=== PATIENT | male | born 1955 | race Caucasian/White ===

== ENCOUNTER → 2018-04-30 | Outpatient (CLI) | payer BC ==
--- NOTE | 2018-05-03 17:32 | MR ---
EXAMINATION TYPE: MR shoulder LT wo con DATE OF EXAM: 04/30/2018 COMPARISON: Outside radiographs 1020 HISTORY: 62-year-old male with left shoulder pain x 1 year, no trauma TECHNIQUE: Multiplanar, multisequence imaging of the left shoulder is performed without contrast. FINDINGS: Minimal intrasubstance signal within the intracapsular portion of the long head biceps tendon. The ex tracapsular portion is appropriately situated along the bicipital groove. Diffuse heterogeneity of the subscapularis tendon with tear of the inferior third fibers. Associated edematous and cystic change within the lesser tuberosity. Mild degenerative joint space narrowing with marginal spurring and capsular hypertrophy at the acromi oclavicular joint. No significant encroachment onto the underlying cuff. Evaluation of the supraspinatal tendon shows bursal sided fraying. There is some intrasubstance lazcano e within both supraspinatus and infraspinatus tendons without any high-grade partial or full-thicknes s tear. No atrophy of the rotator cuff musculature. No significant fluid or thickening of the subacromial/subdeltoid bursa. Evaluation of the glenohumeral joint shows mild diffuse cartilage thinning. There is abnormal signal within the posterior labrum suggesting posterior labral tear. No para labral cyst. Spinal glenoid vilma ove is clear. No Hill-Sachs deformity or os acromiale. Patchy red marrow hyperplasia is present. IMPRESSION: 1. Diffuse rotator cuff tendinosis. The inferior third fibers of the subscapularis tendon are torn. T he majority still remains intact. 2. No additional high-grade partial or full-thickness rotator cuff tear seen. There are areas of intr asubstance change in both supraspinatus and infraspinatus tendons and mild bursal sided fraying of th e supraspinatus tendon. 3. Tear of the posterior glenoid labrum with mild diffuse cartilage thinning of the GH joint. 4. Mild AC joint OA. 5. Tendinosis or minimal interstitial tear of the intracapsular portion of the long head biceps tendo n.
== END ==
LOC: RADMRIMAIN 14:40
PROVIDERS: ATTEND Orthopaedic Surgery
DX: M75.92 Shoulder lesion, unspecified, left shoulder (principal); S43.492A Other sprain of left shoulder joint, initial encounter; M25.812 Other specified joint disorders, left shoulder; M19.012 Primary osteoarthritis, left shoulder

== ENCOUNTER → 2018-06-17 | Outpatient (CLI) | payer BC | LOC: LABPAT 11:24 | PROVIDERS: ATTEND Orthopaedic Surgery | DX: Z01.818 Encounter for other preprocedural examination (principal); Z01.812 Encounter for preprocedural laboratory examination; M75.42 Impingement syndrome of left shoulder | CPT/HCPCS: 93005 ==

== ENCOUNTER → 2018-06-24 | Outpatient (CLI) | payer BC ==
[2018-06-24 12:07] LABS: Potassium 4.9 mmol/L (3.5-5.1)
[2018-06-24 12:15] LABS: Basophils % (A) 1 %; Eosinophils # (A) 0.2 k/uL (0-0.7); Eosinophils % (A) 4 %; HCT 45.6 % (39.0-53.0); Lymphocytes # (A) 2.3 k/uL (1.0-4.8); Lymphocytes % (A) 36 %; MCH 28.6 pg (25.0-35.0); MCHC 32.9 g/dL (31.0-37.0); MCV 86.7 fL (80.0-100.0); Mean Platelet Volume 7.2; Monocytes # (A) 0.3 k/uL (0-1.0); Monocytes % (A) 5 %; Neutrophils # (A) 3.3 k/uL (1.3-7.7); Neutrophils % (A) 53 %; Platelet Count 162 k/uL (150-450); RBC 5.26 m/uL (4.30-5.90); RDW 13.2 % (11.5-15.5); WBC 6.4 k/uL (3.8-10.6)
== END ==
LOC: LABPAT 10:53
PROVIDERS: ATTEND Orthopaedic Surgery
DX: Z01.812 Encounter for preprocedural laboratory examination (principal); M75.42 Impingement syndrome of left shoulder
CPT/HCPCS: 36415; 80051; 85025

== ENCOUNTER 2018-07-22 06:18 | Day surgery (SDC) | payer BC, OTHER ==
[2018-07-20 11:01] VITALS: BMI 27.2
--- NOTE | 2018-07-21 13:48 | HP ---
HISTORY AND PHYSICAL DATE OF SURGERY: 07/22/2018 Logan Quiroz, a 63-year-old patient seen with progressive left shoulder pain. Treatment options discussed. He elected to proceed with arthroscopy. Consent was obtained. PAST MEDICAL HISTORY: [id number] diabetes. PAST SURGICAL HISTORY: Noncontributory. DAILY MEDICATIONS: Metformin. ALLERGIES: None reported. SOCIAL HISTORY: He denies tobacco use. PHYSICAL EVALUATION OF THE LEFT SHOULDER: Flexion 150 degrees, abduction 120 degrees, external rotation is 30 degrees with weakness, tenderness along the anterior lateral acromion rotator cuff insertion site. Positive impingement sign 90, positive drop-arm sign. Distal neurovascular exam is intact. RADIOGRAPHS OF THE LEFT SHOULDER: Revealed a type 2 acromion. Cystic changes of the greater tuberosity. MRI left shoulder revealed a partial rotator cuff tear, labral tear and biceps tendinitis. IMPRESSION: 1. Left shoulder impingement with rotator cuff tear and labral tear. 2. Left shoulder biceps tendinitis. 3. Ijo-weecpmy-oolmgilfc diabetes. PLAN: Left shoulder arthroscopy with subacromial decompression, possible arthroscopic rotator cuff repair, probable arthroscopic biceps tenotomy and debridement. MMODL / IJN: [id number] /
[~2018-07-22 06:18] MED LIST: DEXAMETHASONE SOD PHOSPHATE 10 MG/ML 1 ML VIAL IV ONE; HYDROmorphone 0.5 MG/0.5 ML SYRINGE IVP PRN; LACTATED RINGERS 1,000 ML IV SCH; LIDOCAINE 1% 20 ML VIAL (10MG/ML) FOR IV START INTRADERMA PRN; ONDANSETRON 4 MG/2 ML VIAL IVP ONE; SCOPOLAMINE 1.5MG/72HR PATCH TRANSDERM ONE; ceFAZolin IN SWFI 2 GM/20 ML SYRINGE IVP ONE
[2018-07-22 06:52] LABS: Glucose,Whole Blood 170 mg/dL (75-99)
[2018-07-22] MEDS ORDERED: MIDAZOLAM 2 MG/2 ML VIAL IVP ONE (07:15)
[2018-07-22] MEDS ORDERED: fentaNYL (PF) 50 MCG/ML 2 ML AMP IVP ONE (07:16)
[2018-07-22] MEDS ORDERED: MIDAZOLAM 2 MG/2 ML VIAL ONE (07:57)
[2018-07-22] MEDS ORDERED: PROPOFOL 10 MG/ML 20 ML VIAL IV ONE (07:57)
[2018-07-22] MEDS ORDERED: ROPIVACAINE 5 MG/ML 30 ML VIAL ONE (07:57)
[2018-07-22] MEDS ORDERED: SUCCINYLCHOLINE CHLORIDE 100 MG/5 ML SYR IV ONE (07:57)
[2018-07-22] MEDS ORDERED: LIDOCAINE 1% INJ 10MG/ML (20 ML MDV) ONE (07:57)
[2018-07-22] MEDS ORDERED: fentaNYL (PF) 50 MCG/ML 2 ML AMP ONE (07:57)
[2018-07-22] MEDS ORDERED: LACTATED RINGERS 1,000 ML IV ONE (08:52)
--- NOTE | 2018-07-22 09:04 | P.ONQ ---
Anesthesiology Proc Note - PNB - Peripheral Nerve Block Performed Left Interscalene Single Time Out Performed: Yes Procedure Start Time: 07:14 Indication: Acute Post-Operative Pain, Analgesia Specifically requested for management of pain by DrPeterson: Booker Mcnair Sedation Type: Sedate with meaningful contact maintained Preparation: Sterile Prep Position: Supine Catheter: None Needle Types: Other (see comment) (Pajunk) Needle Size: 50mm (2") Needle Gauge: 21 Technique: Ultrasound Injectate: 0.5% Ropivacaine (see comment for volume) (20cc) Blood Aspirated: No Pain Paresthesia on Injection Noted: No Resistance on Injection: Normal Events: Uneventful and Well Tolerated
--- NOTE | 2018-07-22 09:49 | P.OP ---
Date of Procedure: 07/22/18 Preoperative Diagnosis: Left shoulder impingement Postoperative Diagnosis: 1. Left shoulder rotator cuff tear 2. Left shoulder impingement 3. Left shoulder acromioclavicular joint osteoarthritis 4. Left shoulder partial long head biceps tendon tear Procedure(s) Performed: 1. Left shoulder arthroscopic rotator cuff repair 2. Left shoulder arthroscopic subacromial decompression 3. Left shoulder arthroscopic Darinel procedure 4. Left shoulder arthroscopic biceps tenotomy Implants: 15.5 Arthrex swivel lock anchor Anesthesia: GETA, regional (Interscalene block) Surgeon: Booker Mcnair White Sugar Syrup Operator #1: Nick Montilla Estimated Blood Loss (ml): 5 Pathology: none sent Condition: stable Disposition: PACU Indications for Procedure: 63-year-old patient seen with progressive left shoulder pain. After treatment options were discussed, he elected to proceed with arthroscopy. Operative Findings: See description of procedure Description of Procedure: Patient underwent an interscalene block by department of anesthesia. The patient was then taken to the operative suite. The patient underwent a general anesthetic by the department of anesthesia. The patient was placed into a lateral position and secured. There was appropriate padding of the bony prominence. Left shoulder was then prepped and draped in normal sterile orthopedic fashion. We placed the extremity in 10 pounds of longitudinal traction. A posterior incision was now made for a posterior working portal site. The trocar and cannula were inserted into the glenohumeral joint. Arthroscopy was initiated. Spinal needle was now inserted anteriorly, to ascertain the anterior working portal site. An incision was now made in that area, a trocar was inserted followed by a probe. There was some mild fraying of the anterior labrum present. There were grade 1 chondral malacia changes of the glenoid. There was some partial tearing and hyperemia long head biceps tendon. I performed an arthroscopic biceps tenotomy. I debrided that superficial fraying of the anterior labrum. The residual labrum was stable. Instruments now removed from glenohumeral joint. Utilizing the posterior working portal site, the trocar and cannula were inserted into the subacromial space. Arthroscopy initiated. I made an incision 2 fingerbreadths lateral to the acromion. I introduced my trocar followed by my ArthroCare ablator. I now began ablating thick subacromial bursal tissue, which exposed the undersurface of the anterior acromion. There was diminished subacromial space. There was a very prominent anterior acromion. A motorized bur was introduced and a subacromial decompression was performed. I also excised some osteophytes off the inferior aspect of the distal clavicle. The AC joint was visualized and noted to be fairly arthritic. The motorized bur was introduced in the anterior portal site and a Darinel procedure was performed without difficulty, decompressing the AC joint nicely. I turned my attention to the rotator cuff. There was superficial tearing noted along the distal supraspinatus area. I debrided that down to stable tissue. I probed the area noted a full-thickness perforation. I debrided those margins gained down to stable tendon tissue. We had about a 11.5 cm defect. I abraded the footprint with a motorized bur. 2 everted mattress sutures were passed through good bites of rotator cuff tendon. I also passed 1 suture linkl more posteriorly. I punched a hole in the footprint for insertion of a anchor. The sutures now passed through an anchor and the anchor was then introduced into the the prepunched hole area. While held the eyelet in position Arvind MENDENHALL tension the sutures and then we introduced the anchors were prepunched hole. I told anchor position on the branch introduce anchor with good bite and purchase noted. Residual suture limbs were clipped. The repair was probed and found to be stable. I injected 1 mL Renue intra-articular. Instruments now removed from the portal sites. All portal sites were approximated with nylon suture. Sterile dressings were applied followed by a shoulder immobilizer. Nick MENDENHALL assisted in this complex case. The patient was awakened, transferred to a bed, and taken to recovery in stable condition.
[2018-07-22 09:52] VITALS: TEMP 97.3
[2018-07-22] MEDS ORDERED: ONDANSETRON 4 MG/2 ML VIAL IVP ONE (10:41)
[2018-07-22] MEDS ORDERED: METOCLOPRAMIDE 5 MG/ML 2 ML VIAL IVP ONE (11:37)
[2018-07-22 12:05] VITALS: BP 117/74; PULSE 74; RESP 19
== END 2018-07-22 12:06 | disposition home or self-care (01) ==
LOC: OR 06:18
PROVIDERS: ATTEND Orthopaedic Surgery
DX: M75.122 Complete rotator cuff tear or rupture of left shoulder, not specified as traumatic (principal); M75.42 Impingement syndrome of left shoulder; M19.012 Primary osteoarthritis, left shoulder; M75.22 Bicipital tendinitis, left shoulder; M94.212 Chondromalacia, left shoulder; S46.112A Strain of muscle, fascia and tendon of long head of biceps, left arm, initial encounter; X58.XXXA Exposure to other specified factors, initial encounter; E11.9 Type 2 diabetes mellitus without complications; G47.33 Obstructive sleep apnea (adult) (pediatric); Z85.46 Personal history of malignant neoplasm of prostate; Z90.79 Acquired absence of other genital organ(s); Z79.84 Long term (current) use of oral hypoglycemic drugs
CPT/HCPCS: 64415; 29827; 29824; 29822; C1713 ×2; C1765; J2250; J1100; J2765; J2405; J2001; J3010; J2795; J0330; J2704; J0690

== ENCOUNTER → 2018-12-04 | Outpatient (CLI) | payer OTHER ==
[2018-12-04 12:24] LABS: Blood Urea Nitrogen 12 mg/dL (9-20)
--- NOTE | 2018-12-04 14:31 | CT ---
EXAMINATION TYPE: CT pelvis w con DATE OF EXAM: 12/04/2018 COMPARISON: CT scan 05/09/2017 HISTORY: Elevated PSA, history of prostate cancer. CT DLP: 495.1 mGycm Automated exposure control for dose reduction was used. CONTRAST: Performed with IV Contrast, patient injected with 100 mL of Isovue M300. FINDINGS: I see no intestinal wall thickening. There are scattered sigmoid diverticula. There is no evidence of diverticulitis. There is prostate surgery noted. There is no evidence of a pelvic mass. There is no inguinal hernia. There is no free fluid in the pelvis. There are phleboliths in the pelvis. I see no pathologic enhancement. There is some atherosclerotic vascular calcification. Appendix appears normal . IMPRESSION: PROSTATE SURGERY. ATHEROSCLEROTIC VASCULAR DISEASE. NORMAL APPENDIX. NO EVIDENCE OF RECURRENT TUMOR. SIGMOID DIVERTICULOSIS. No significant change.
--- NOTE | 2018-12-04 15:36 | NM ---
EXAMINATION TYPE: NM bone scan whole body DATE OF EXAM: 12/04/2018 COMPARISON: CT pelvis 12/04/2017 HISTORY: Prostate cancer Delayed whole-body scanning was performed following the injection of 24.1 mCi Tc 99m MDP. Images acq uired 3 hours post injection. FINDINGS: Soft tissue uptake is normal. Uptake within the feet, knees, wrists, elbows, shoulders and sternoclav icular joints is likely degenerative. Mild uptake present along the anterior left fifth and sixth rib s may be posttraumatic. No evident increased or decreased uptake to suggest metastatic disease. Mild uptake within the spine is likely degenerative. IMPRESSION: Metastatic disease is not evident.
== END | disposition home or self-care (01) ==
LOC: RADNMMAIN 11:27
PROVIDERS: ATTEND Urology
DX: K57.30 Diverticulosis of large intestine without perforation or abscess without bleeding (principal); I70.90 Unspecified atherosclerosis; C61 Malignant neoplasm of prostate; Z98.890 Other specified postprocedural states
CPT/HCPCS: 82565; 84520; 72193; 78306; A9503; Q9967 ×2

== ENCOUNTER → 2018-12-11 | Outpatient (CLI) | payer OTHER | END | disposition home or self-care (01) | LOC: LABWHC1 10:54 | PROVIDERS: ATTEND Urology | DX: C61 Malignant neoplasm of prostate (principal); R97.21 Rising PSA following treatment for malignant neoplasm of prostate | CPT/HCPCS: 36415; 84153 ==

== ENCOUNTER → 2019-05-19 | Outpatient (CLI) | payer OTHER | END | disposition home or self-care (01) | LOC: LABWHC1 10:04 | PROVIDERS: ATTEND Radiology Radiation Oncology | DX: C61 Malignant neoplasm of prostate (principal); Z90.79 Acquired absence of other genital organ(s) | CPT/HCPCS: 36415; 84153 ==

== ENCOUNTER → 2020-09-14 | Outpatient (CLI) | payer OTHER ==
--- NOTE | 2020-09-14 16:36 | CT ---
EXAMINATION TYPE: CT abdomen pelvis wo/w con DATE OF EXAM: 09/14/2020 COMPARISON: Correlation CT pelvis 12/04/2018 HISTORY: 65-year-old male with Right abdominal pain, kidney stone (R10.9, N20.0) TECHNIQUE: Contiguous axial scanning of the abdomen and pelvis before and after administration of 100 ml Isovue 300 IV contrast. Delayed images through the kidneys and coronal/sagittal reconstructions performed. CT DLP: 2091 mGycm Automated exposure control for dose reduction was used. FINDINGS: Heart normal size without pericardial effusion. Circumferential wall thickening distal esophagus. Boogie g bases clear without pleural effusion. No focal liver lesion or biliary ductal dilatation. Portal venous system is patent. Tiny dependent calculi in the nondistended gallbladder. Adrenal glands and pancreas appear within normal limits. Punctate nonobstructive 2 mm left renal calculus. There is mild hydronephrosis and mild hydroureter on the right with a 3 mm calculus at the distal thi rd right ureter and delayed excretory phase from the right kidney. No dilated small bowel, free fluid, or free air. No mesenteric or retroperitoneal lymphadenopathy. Normal appendix. Mild stool burden. Proximal sigmoid diverticulosis. No pericolonic inflammatory hatfield ge. Bladder distended. Multiple pelvic phlebolith. Suspect surgical changes of prior TURP. No abnormal fl uid collection in the pelvis or pelvic lymphadenopathy. Bones: Multiple mild degenerative change of the hips. Osteopenia. Inferior endplate deformity of L5 i s new from 2019 but still is age-indeterminate. No surrounding inflammatory changes are seen. Facet a rthropathy lower lumbar spine. IMPRESSION: 1. EXAM POSITIVE FOR A 3 MM DISTAL THIRD RIGHT URETERAL CALCULUS WITH MILD OBSTRUCTIVE UROPATHY. 2. CIRCUMFERENTIAL WALL THICKENING OF THE DISTAL ESOPHAGUS. CORRELATE FOR SYMPTOMS OF ESOPHAGITIS. 3. PUNCTATE 2 MM NONOBSTRUCTIVE LEFT RENAL CALCULUS. TINY GALLSTONES. PROXIMAL SIGMOID DIVERTICULOSIS .
== END ==
LOC: RADCTMAIN 14:11
PROVIDERS: ATTEND Family Medicine
DX: N20.2 Calculus of kidney with calculus of ureter (principal); K57.32 Diverticulitis of large intestine without perforation or abscess without bleeding; K80.20 Calculus of gallbladder without cholecystitis without obstruction
CPT/HCPCS: 74178; Q9967

== ENCOUNTER → 2020-09-19 | Outpatient (CLI) | payer OTHER ==
--- NOTE | 2020-09-19 09:26 | US ---
EXAMINATION TYPE: US kidneys/renal and bladder DATE OF EXAM: 09/19/2020 COMPARISON: Recent CT CLINICAL HISTORY: N13.1 HYDRONEPHROSIS WITH URETERAL STRUCTURE. Right flank pain EXAM MEASUREMENTS: Right Kidney: 13.0 x 7.2 x 6.6 cm Left Kidney: 13.0 x 6.5 x 6.1 cm Right Kidney: Mild hydronephrosis. No etiology by ultrasound is evident. Left Kidney: No evidence of hydro, possible 5mm and 4mm renal calculus Bladder: Not fully distended, pt tried drinking water, in too much pain Bilateral Jets seen: No IMPRESSION: 1. Nonobstructing left renal stones. 2. Mild right hydronephrosis
== END ==
LOC: RADUSWWP 07:24
PROVIDERS: ATTEND Family Medicine
DX: N13.30 Unspecified hydronephrosis (principal); N20.0 Calculus of kidney
CPT/HCPCS: 76770

== ENCOUNTER → 2020-11-07 | Outpatient (CLI) | payer OTHER ==
--- NOTE | 2020-11-07 08:48 | US ---
EXAMINATION TYPE: US kidneys/renal and bladder DATE OF EXAM: 11/07/2020 COMPARISON: 09/19/2020 CLINICAL HISTORY: N20.1 Calculus of ureter. Hx of stones EXAM MEASUREMENTS: Right Kidney: 11.8 x 6.2 x 5.3 cm Left Kidney: 12.6 x 5.8 x 4.4 cm Right Kidney: No hydronephrosis or masses seen Left Kidney: No hydronephrosis or masses seen Bladder: wnl Bilateral Jets seen: Yes Impression: Previous left renal stones are not well demonstrated on the current exam. Previous right hydronephrosis has resolved. IMPRESSION: No acute renal abnormality. Previous right hydronephrosis has resolved.
== END | disposition home or self-care (01) ==
LOC: RADUSWWP 07:27
PROVIDERS: ATTEND Urology
DX: N20.1 Calculus of ureter (principal)
CPT/HCPCS: 76770

== ENCOUNTER → 2021-01-16 | Outpatient (CLI) | payer OTHER ==
[2021-01-16 21:35] LABS: Prostate Specific Antigen 0.2 ng/mL (0.0-4.5)
== END | disposition home or self-care (01) ==
LOC: LABWHC1 12:14
PROVIDERS: ATTEND Urology
DX: C61 Malignant neoplasm of prostate (principal); R97.20 Elevated prostate specific antigen [PSA]
CPT/HCPCS: 36415; 84153; 84403

== ENCOUNTER → 2021-04-16 | Outpatient (CLI) | payer OTHER | END | disposition home or self-care (01) | LOC: LABWHC1 13:48 | PROVIDERS: ATTEND Urology | DX: R97.20 Elevated prostate specific antigen [PSA] (principal) | CPT/HCPCS: 36415; 84153 ==

== ENCOUNTER → 2021-07-09 | Outpatient (CLI) | payer MEDICARE, OTHER ==
[2021-07-09 21:07] LABS: Prostate Specific Antigen 0.7 ng/mL (0.00-4.50)
== END | disposition home or self-care (01) ==
LOC: LABWHC1 10:57
PROVIDERS: ATTEND Urology
DX: C61 Malignant neoplasm of prostate (principal); R97.21 Rising PSA following treatment for malignant neoplasm of prostate
CPT/HCPCS: 36415; 84153; 84403

== ENCOUNTER → 2021-10-05 | Outpatient (CLI) | payer MEDICARE, OTHER ==
[2021-10-05 16:22] LABS: Prostate Specific Antigen 0.4 ng/mL (0.00-4.50); Testosterone 2.74 ng/mL (86.98-780.10)
== END | disposition home or self-care (01) ==
LOC: LABWHC1 09:02
PROVIDERS: ATTEND Urology
DX: C61 Malignant neoplasm of prostate (principal)
CPT/HCPCS: 36415; 84153; 84403

== ENCOUNTER → 2022-05-01 | Outpatient (CLI) | payer MEDICARE, OTHER ==
--- NOTE | 2022-05-01 10:32 | US ---
EXAMINATION TYPE: US abdomen complete DATE OF EXAM: 05/01/2022 COMPARISON: NONE CLINICAL HISTORY: R94.5 ABNORMAL RESULTS OF LIVER FUNCTION STUDIES. Elevated liver enzymes TECHNIQUE: Multiple sonographic images of the abdomen are obtained. FINDINGS: EXAM MEASUREMENTS: Liver Length: 15.1 cm Gallbladder Wall: 0.3 cm CBD: 0.4 cm Spleen: 13.2 cm. Normal less than 12.5 cm. Right Kidney: 11.3 x 6.1 x 5.5 cm Left Kidney: 12.8 x 6.4 x 4.5 cm Pancreas: Obscured by bowel gas Liver: appears wnl Gallbladder: no evidence of stones. No pericholecystic fluid evident. Evidence for sonographic Cook's sign: no CBD: wnl Spleen: slightly enlarged Right Kidney: no evidence of hydronephrosis Left Kidney: no evidence of hydronephrosis Upper IVC: wnl Abd Aorta: wnl IMPRESSION: 1. Minimal splenomegaly. 2. Borderline wall thickening of the gallbladder. Gallbladder is otherwise unremarkable.
== END | disposition home or self-care (01) ==
LOC: RADUSWWP 07:11
PROVIDERS: ATTEND Family Medicine
DX: N32.89 Other specified disorders of bladder (principal); R16.1 Splenomegaly, not elsewhere classified
CPT/HCPCS: 76700

== ENCOUNTER → 2022-05-24 | Outpatient (CLI) | payer MEDICARE, OTHER ==
--- NOTE | 2022-05-25 10:52 | PE ---
EXAMINATION TYPE: PET CT fusion skull to thigh DATE OF EXAM: 05/24/2022 CLINICAL INDICATION:Male, 66 years old with history of C61; TECHNIQUE: Following the intravenous administration of 6.52 mCi of Ga-68 Illuccix (PSMA), whole bod y images are performed from the skull base to the midthigh. Images are reviewed on the computer in t he coronal, axial, and sagittal planes. Reconstructed rotating images are created on independent Zkatter kstation and reviewed on the computer. A non-contrast CT is performed in conjunction with the PET s can. COMPARISON: CT 09/14/2020, PET/CT None, FINDINGS: Mediastinal SUV mean is 0.6. Hepatic parenchyma SUV mean is 1.3. SKULL BASE AND NECK: No suspicious Illuccix activity. CHEST, MEDIASTINUM, AND HILAR REGION: Scattered pulmonary nodules are seen throughout the lungs do no t demonstrate increased radiotracer uptake. Some have central lucency largest in the right upper lobe measuring 8 mm series 2 image 33, in the right middle lobe measuring 7 mm image 94 in the right low er lobe measuring 8 mm image 84 in the left upper lobe measuring 6 mm and in the left lower lobe 6 mm both on image 63. ABDOMEN AND PELVIS: No suspicious Illuccix activity. Prostate gland is surgically absent no definitiv e radiotracer uptake is identified in the prostate bed. Dense calcifications are noted that different bilaterally. OSSEOUS STRUCTURES: No suspicious Illuccix activity. OTHER CT: Cholelithiasis. Mild atherosclerosis of the arterial vasculature. Colonic diverticula prese nt. Prostate gland is surgically absent. No evidence of abnormal soft tissue in the prostatic bed sug gest recurrence. IMPRESSION: 1. Prostate gland without evidence of abnormal radiotracer uptake to suggest metastatic or recurrenc e at this time. 2. Scattered subcentimeter pulmonary nodules seen throughout the lungs which are not definitively vi sualized on prior CT abdomen pelvis examination may have been the [id number] in 2020. Correlation with priors at outside institutions would be recommended if available. Follow-up imaging with CT ches t to ensure stability is recommended in 3 months. Consider PET/CT at that time.
== END | disposition home or self-care (01) ==
LOC: RADPETMAIN 15:23
PROVIDERS: ATTEND Urology
DX: C61 Malignant neoplasm of prostate (principal); R91.8 Other nonspecific abnormal finding of lung field
CPT/HCPCS: 78815; A9596

== ENCOUNTER → 2022-07-24 | Outpatient (CLI) | payer MEDICARE, OTHER ==
--- NOTE | 2022-07-24 09:47 | BD ---
EXAMINATION TYPE: Axial Bone Density DATE OF EXAM: 07/24/2022 COMPARISON: NONE CLINICAL HISTORY: 67 years year old Male. ICD-10 CODE: M85.80 oth disorders of bone density/structur e Height: 5 FT 11 IN Weight: 186 FRAX RISK QUESTIONS: Alcohol (3 or more units per day): NO Family History (Parent hip fracture): NO Glucocorticoids (More than 3mos): NO (Ex: prednisone, prednisolone, methylprednisolone, dexamethasone, and hydrocortisone). History of Fracture in Adulthood: YES Secondary Osteoporosis: 1. Type 1 Diabetes: TYPE 2 2. Hyperthyroidism: NO 3. Menopause before 45: NA 4. Malnutrition: NO 5. Chronic liver disease: NO Rheumatoid Arthritis: NO Current Tobacco Use: NO RISK FACTORS HISTORY OF: Surgery to Spine/Hip(right/left)/Wrist (right/left): NO Family History of Osteoporosis: NO Active: NO Diet low in dairy products/other sources of calcium: NO If Lost more than 2 inches in height since high school: NO Frequent falls: NO Poor Health: FAIR Hyperparathyroidism: NO Adrenal Insufficiency: NO MEDICATIONS: Additional Medications: METFORMIN,JARDIANCE, LUPRON Additional History: PROSTATE CANCER RADIATION 3 YEARS AGO EXAM MEASUREMENTS: Bone mineral densitometry was performed using the [employer] System. Bone mineral density as measured about the Lumbar spine is: ----- L1-L4(G/cm2): 0.965 T Score Values are as follows: ----- L1: -1.8 ----- L2: -2.5 ----- L3: -2.0 ----- L4: -1.1 ----- L1-L4: -1.8 BASELINE Bone mineral density about the R hip (g/cm2): 0.595 Bone mineral density about the L hip (g/cm2): 0.589 T Score values are as follows: -----R Neck: -3.2 -----L Neck: -3.2 -----R Total: -3.0 -----L Total: -3.2 BASELINE FRAX%s: The graph provided illustrates a 24.3 % chance for a major osteoporotic fx and a 11.3 % chanc e for the hips probability for fx in 10 years time. IMPRESSION: Osteoporosis (T Score less than -2.5). There is increased fracture risk and therapy is usually indicated based on age. Re-Screen 1-2 years. NOTE: T-SCORE=SD OF THE YOUNG ADULT MEAN.
== END | disposition home or self-care (01) ==
LOC: RADBDWWP 07:54
PROVIDERS: ATTEND Family Medicine
DX: M81.0 Age-related osteoporosis without current pathological fracture (principal); M85.88 Other specified disorders of bone density and structure, other site
CPT/HCPCS: 77080

== ENCOUNTER → 2023-05-22 | Outpatient (CLI) | payer MEDICARE, OTHER ==
[~2023-05-22] MED LIST changes: +DENOSUMAB 60 MG/ML 1 ML SYRINGE SQ NR; -DEXAMETHASONE SOD PHOSPHATE 10 MG/ML 1 ML VIAL IV ONE; -HYDROmorphone 0.5 MG/0.5 ML SYRINGE IVP PRN; -LACTATED RINGERS 1,000 ML IV SCH; -LIDOCAINE 1% 20 ML VIAL (10MG/ML) FOR IV START INTRADERMA PRN; -ONDANSETRON 4 MG/2 ML VIAL IVP ONE; -SCOPOLAMINE 1.5MG/72HR PATCH TRANSDERM ONE; -ceFAZolin IN SWFI 2 GM/20 ML SYRINGE IVP ONE
[2023-05-22 09:10] VITALS: BP 135/80; PULSE 66; RESP 16; TEMP 97.8
== END ==
LOC: PROCWHC3 08:54
PROVIDERS: ATTEND Family Medicine
DX: M81.0 Age-related osteoporosis without current pathological fracture (principal)
CPT/HCPCS: 96372; J0897

== ENCOUNTER → 2023-06-05 | Outpatient (CLI) | payer MEDICARE, OTHER ==
--- NOTE | 2023-06-05 13:46 | US ---
EXAMINATION TYPE: US carotid duplex BILAT DATE OF EXAM: 06/05/2023 COMPARISON: NONE CLINICAL INDICATION: Male, 67 years old with history of G45.9 TRANSIENT CEREBRAL ISCHEMIC ATTACK, UNS PECIF; Dizziness. Numbness throughout right arm. TECHNIQUE: Carotid duplex ultrasound examination. Indirect Doppler criteria was utilized. FINDINGS: EXAM MEASUREMENTS: RIGHT: Peak Systolic Velocity (PSV) cm/sec ----- Right CCA: 83.2 ----- Right ICA: 67.1 ----- Right ECA: 122.0 ICA/CCA ratio: 0.8 RIGHT: End Diastole cm/sec ----- Right CCA: 24.4 ----- Right ICA: 22.0 ----- Right ECA: 18.4 LEFT: Peak Systolic Velocity (PSV) cm/sec ----- Left CCA: 76.0 ----- Left ICA: 70.8 ----- Left ECA: 89.2 ICA/CCA ratio: 0.9 LEFT: End Diastole cm/sec ----- Left CCA: 19.6 ----- Left ICA: 27.8 ----- Left ECA: 10.5 VERTEBRALS (direction of flow): Right Vertebral: Antegrade Left Vertebral: Antegrade Rhythm: Normal [employer] NOTES: No elevated velocities seen. Exam slightly limited due to patient snoring. IMPRESSION: No significant hemodynamic stenosis as visualized Criteria for Assigning % of Stenosis / Diameter reduction (Estimation based on the indirect measurements of the internal carotid artery velocities (ICA PSV). 1. Normal (no stenosis)=ICA PSV < 125 cm/s: ratio < 2.0: ICA EDV<40 cm/s. 2. Less than 50% stenosis=ICA PSV < 125 cm/s: ratio < 2.0: ICA EDV<40 cm/s. 3. 50 to 69% stenosis=ICA PSV of 125 to 230 cm/s: ration 2.0 ? 4.0: ICA EDV 40-100 cm/s. 4. Greater than 70% stenosis to near occlusion= ICA PSV > 230 cm/s: ratio > 4.0: ICA EDV > 100 cm/s. 5. Near occlusion= ICA PSV velocities may be low or undetectable: variable ratio and ICA EDV. 6. Total occlusion=unable to detect flow.
--- NOTE | 2023-06-05 13:57 | CT ---
EXAMINATION TYPE: CT brain wo con DATE OF EXAM: 06/05/2023 COMPARISON: HISTORY: dizzines and rt side loss of strength, poss TIA CT DLP: 1069.[address] of the brain was performed. The ventricles, basal cisterns and sulci overlying the cerebral convexities demonstrate mild enlargem ent. Hyperdense focus in the region of the right sylvian cistern measuring 6 mm is of uncertain etiol ogy. Small focus of hemorrhage or hyperdense lesion is difficult to exclude. Calcifications of the ba chidi ganglia noted. There is no evidence for intracranial hemorrhage or sulcal effacement. There is decreased attenuation about the periventricular white matter and deep white matter of both c erebral hemispheres, compatible with chronic small vessel ischemia. Differential diagnosis does inclu de demyelination. No mass effects are seen.No midline shift. Osseous calvarium is intact. If symptoms persist consider MRI. IMPRESSION: 1. Hyperdense focus in the region of the right sylvian cistern measuring 6 mm is of uncertain etiolog y. Small focus of hemorrhage or hyperdense lesion is difficult to exclude. Calcifications of the basa l ganglia noted.
== END | disposition home or self-care (01) ==
LOC: RADCTMAIN 12:02
PROVIDERS: ATTEND Family Medicine
DX: G45.9 Transient cerebral ischemic attack, unspecified (principal); G93.9 Disorder of brain, unspecified; R20.0 Anesthesia of skin
CPT/HCPCS: 70450; 93880

== ENCOUNTER → 2023-06-11 | Outpatient (CLI) | payer MEDICARE, OTHER ==
--- NOTE | 2023-06-11 08:25 | MR ---
EXAMINATION TYPE: MR brain wo/w con DATE OF EXAM: 06/11/2023 COMPARISON: CT brain June 05, 2023 HISTORY: Dizziness, right arm numbness. Hx prostate cancer 2018. TIA. TECHNIQUE: Multiplanar, multisequence images of the brain and brainstem is performed without and with IV contras t, utilizing 8 mL intravenous Gadavist . FINDINGS: Diffusion weighted images demonstrate no evidence of a recent infarct or other diffusion ab normality. There is no extra-axial fluid collection or significant white matter signal abnormality. The ventricular system and cisternal spaces are normal in size and appearance. The brain volume is age appropriate. There is blooming artifact from hyperdense focus near the right frontal temporal hawa ction is noted. Midline structures demonstrate normal morphology. The craniocervical junction appears within normal limits. Post contrast images demonstrate no abnormal enhancement. The dural venous sinuses appear pa tent. Hwtb-mo-fwrnheyc mucosal thickening involving the left maxillary sinus and anterior ethmoid sin uses bilaterally. Globes are intact bilaterally. IMPRESSION: No MRI evidence for a recent infarct. Some chronic paranasal sinus disease is present. No suspicious enhancement is seen. Blooming artifact from small focus near the frontal temporal junctio n favors parenchymal calcification versus acute hemorrhage.
== END | disposition home or self-care (01) ==
LOC: RADMRIMAIN 07:24
PROVIDERS: ATTEND Family Medicine
DX: G45.9 Transient cerebral ischemic attack, unspecified (principal); J34.89 Other specified disorders of nose and nasal sinuses; Z85.46 Personal history of malignant neoplasm of prostate
CPT/HCPCS: 70553; A9585

== ENCOUNTER → 2023-09-02 | Outpatient (CLI) | payer MEDICARE, OTHER ==
--- NOTE | 2023-09-03 14:55 | MR ---
EXAMINATION TYPE: MR cervical spine wo/w con DATE OF EXAM: 09/02/2023 7:27 PM CLINICAL INDICATION:Male, 68 years old with history of M54.12 RADICULOPATHY, CERVICAL REGION, Right a rm pain and weakness, Hx Prostate cancer COMPARISON: None. TECHNIQUE: Multi planar, multi sequence imaging was performed utilizing: T1-weighted, T2-weighted, an d turbo inversion recovery imaging of the cervical spine. IV Contrast: 8 cc Gadavist (none if empty) FINDINGS: Alignment: The cervical vertebral bodies have preserved heights. Alignment is within normal limits gi tariq patient positioning. Bones: Osteophyte and disc space narrowing most pronounced at the C5-C7 vertebral levels. Scattered h igh T2 signal lesions are seen throughout the vertebral bodies favored represent vertebral body heman giomas. Cord: The spinal cord is unremarkable with regards to their signal intensity and morphology. Discs: Multilevel disc desiccation is present. C2-C3: No significant disc pathology. The spinal canal is patent. No neural foraminal stenosis. C3-C4: No significant disc pathology. The spinal canal is patent. Bilateral facet and uncovertebral joint arthropathy are present with mild bilateral neural foraminal stenosis. C4-C5: No significant disc pathology. The spinal canal is patent. Bilateral facet and uncovertebral joint arthropathy are present with moderate left and mild right neural foraminal stenosis. C5-C6: A disc osteophyte complex is present with mild spinal canal stenosis. Bilateral facet and unc overtebral joint arthropathy are present with moderate to severe bilateral neural foraminal stenosis. C6-C7: A disc osteophyte complex is present which minimally narrows the ventral subarachnoid space. Bilateral facet and uncovertebral joint arthropathy are present with moderate bilateral neural lacy inal stenosis. C7-T1: No significant disc pathology. The spinal canal is patent. No neural foraminal stenosis. Other: None. IMPRESSION: 1. No evidence for disc herniation or significant spinal canal stenosis. 2. Multilevel disc degeneration with associated osteoarthritic changes. Neural foraminal stenosis wor se at C5-C6 with moderate to severe bilateral and C4-C5 with moderate left effusion is moderate bilat eral C6-C7.
== END | disposition home or self-care (01) ==
LOC: RADMRIMAIN 18:48
PROVIDERS: ATTEND Psychiatry & Neurology Neurology
DX: M54.12 Radiculopathy, cervical region (principal); R29.898 Other symptoms and signs involving the musculoskeletal system; Z85.46 Personal history of malignant neoplasm of prostate
CPT/HCPCS: 72156; A9585

== ENCOUNTER → 2023-09-15 | Outpatient (CLI) | payer MEDICARE, OTHER ==
--- NOTE | 2023-09-15 10:34 | XR ---
EXAMINATION TYPE: XR KUB DATE OF EXAM: 09/15/2023 9:19 AM CLINICAL INDICATION:Male, 68 years old with history of N20.0 CALCULUS OF KIDNEY; [facility] COMPARISON: 09/14/2020. TECHNIQUE: One radiographic view of the abdomen was obtained. FINDINGS: Evaluation for renal calculus is limited due to bowel gas. The bowel gas pattern is nonspec ific without dilated loops of small or large bowel. There is no evidence for organomegaly or pneumope ritoneum. The osseous structures are intact. No abnormal calcifications are present. Fecal material and gas are demonstrated throughout the colon and rectum. IMPRESSION: No renal calculi definitively visualized on radiography.
== END | disposition home or self-care (01) ==
LOC: RADXRMAIN 09:01
PROVIDERS: ATTEND Urology
DX: N20.0 Calculus of kidney (principal)
CPT/HCPCS: 74018

== ENCOUNTER → 2023-09-26 | Outpatient (CLI) | payer MEDICARE, OTHER ==
--- NOTE | 2023-09-26 13:47 | CT ---
EXAMINATION TYPE: CT abdomen pelvis wo con DATE OF EXAM: 09/26/2023 COMPARISON: 09/14/2020 HISTORY: Suspected Renal stone. CT DLP: 1146 mGycm Automated exposure control for dose reduction was used. TECHNIQUE: Helical acquisition of images was performed from the lung bases through the pelvis. FINDINGS: LUNG BASES: No significant abnormality is appreciated. LIVER/GB: Cholelithiasis. No CT evidence of cholecystitis. Liver homogeneous. PANCREAS: No significant abnormality is seen. SPLEEN: Borderline splenomegaly measuring 13 cm. ADRENALS: Subcentimeter nodule left adrenal gland most typical of benign adenoma. KIDNEYS: Right kidney: There are multiple (approximately 3) punctate 1 to 2 mm nonobstructing right renal calc antonio. Mild cortical lobulation. Left kidney: No hydronephrosis. Mild cortical lobulation. No definitive renal calculus. Ureters: Segmentally demonstrated to be of normal course and caliber with no definite hydroureter, pe riureteral edema or calcification. FREE AIR: No free air is visualized RETROPERITONEAL ADENOPATHY: None visualized REPRODUCTIVE ORGANS: No significant abnormality is seen URINARY BLADDER: Incomplete distention limits assessment. PELVIC ADENOPATHY: None visualized. OSSEOUS STRUCTURES: Diffuse osteopenia and degenerative changes spine and BOWEL: No evidence of obstruction. Appendix normal. Mild changes of colonic diverticulosis. Small hi atal hernia. OTHER: Vascular calcifications are noted including the abdominal aorta. No evidence of aneurysm. IMPRESSION: 1. There are multiple punctate 1 mm nonobstructing right renal calculi. 2. Cholelithiasis with no CT evidence of cholecystitis.
== END | disposition home or self-care (01) ==
LOC: RADCTMAIN 12:00
PROVIDERS: ATTEND Urology
DX: N20.0 Calculus of kidney (principal); K80.20 Calculus of gallbladder without cholecystitis without obstruction
CPT/HCPCS: 74176

== ENCOUNTER → 2023-11-05 | Outpatient (CLI) | payer MEDICARE, OTHER | END | disposition home or self-care (01) | LOC: LABWHC1 13:05 | PROVIDERS: ATTEND Urology | DX: C61 Malignant neoplasm of prostate (principal) | CPT/HCPCS: 36415; 84153 ==

== ENCOUNTER → 2023-12-03 | Outpatient (CLI) | payer MEDICARE, OTHER ==
[2023-12-03] MEDS: DENOSUMAB 60 MG/ML 1 ML SYRINGE SQ NR (14:52)
[2023-12-03 15:21] VITALS: BP 147/77; PULSE 65; RESP 16; TEMP 98.1
== END ==
LOC: PROCWHC3 14:23
PROVIDERS: ATTEND Family Medicine
DX: M81.0 Age-related osteoporosis without current pathological fracture (principal)
CPT/HCPCS: 96372; J0897

== ENCOUNTER 2023-12-16 08:14 | Day surgery (SDC) | payer MEDICARE, OTHER ==
[2023-12-12 14:20] VITALS: BMI 24.7
[2023-12-16 08:38] VITALS: RESP 16; TEMP 97
[2023-12-16] MEDS: IV FLUID CONTINUATION 1,000 ML IV ONE (08:39)
[2023-12-16] MEDS: LACTATED RINGERS 1,000 ML IV SCH (08:40)
[2023-12-16] MEDS: LIDOCAINE 1% (10MG/ML) FOR IV START INTRADERMA ONE (08:41)
[2023-12-16] MEDS: INSULIN ASPART (NovoLOG) 100 UNIT/ML VIAL SQ ONE (08:57)
[2023-12-16 09:03] LABS: Glucose,Whole Blood 236 mg/dL (70-110)
[2023-12-16] MEDS ORDERED: PROPOFOL 10 MG/ML 20 ML VIAL IV ONE (09:34)
--- NOTE | 2023-12-16 09:40 | P.GSHP ---
History of Present Illness H&P Date: 12/16/23 Chief Complaint: Colon cancer screening 68-year-old male here for colonoscopy. Last colonoscopy 6 to 7 years ago. No bowel complaints. Family history of colon cancer in his mother. Prior colonoscopy was normal. Past Medical History Past Medical History: Cancer, Diabetes Mellitus, Prostate Disorder, Sleep Apnea/CPAP/BIPAP Additional Past Medical History / Comment(s): Hx kidney stones. Hx prostate cancer 2018 with radiation receives shot every 6 months. Osteoporosis. No device for sleep apnea. History of Any Multi-Drug Resistant Organisms: None Reported Past Surgical History: Hernia Repair Additional Past Surgical History / Comment(s): Colonoscopy, hernia repair X2. Past Anesthesia/Blood Transfusion Reactions: No Reported Reaction, Motion Sickness Smoking Status: Never smoker - Past Family History Father Family Medical History: Cancer Additional Family Medical History / Comment(s): Prostate cancer. Mother Family Medical History: Cancer Additional Family Medical History / Comment(s): Breast cancer. Medications and Allergies Home Medications Medication Instructions Recorded Confirmed Type metFORMIN HCL [Glucophage] 850 mg PO TID 07/20/18 12/12/23 History Calcium Carbonate/Vitamin D3 1 tab PO Q72H 08/15/22 12/12/23 History [Calcium 600 mg-D3 20 mcg (800 unit)] Lupron. 1 dose IM Q180D 12/12/23 12/12/23 History Prolia (Unknown Dose) 1 dose IM Q180D 12/12/23 12/12/23 History Allergies Allergy/AdvReac Type Severity Reaction Status Date / Time No Known Allergies Allergy Verified 12/16/23 08:34 Surgical - Exam Vital Signs Temp Pulse Resp BP Pulse Ox 97.0 F L 65 16 131/80 99 12/16/23 08:36 12/16/23 08:36 12/16/23 08:36 12/16/23 08:36 12/16/23 08:36 Physical exam: General: Well-developed, well-nourished HEENT: Normocephalic, sclerae nonicteric Abdomen: Nontender, nondistended Extremities: No edema Neuro: Alert and oriented Results - Labs Abnormal Lab Results - Last 24 Hours (Table) 12/16/23 Range/Units 08:50 POC Glucose (mg/dL) 236 H (70-110) mg/dL Assessment and Plan (1) Colon cancer screening Narrative/Plan: Will proceed with colonoscopy at this time. Current Visit: Yes Status: Acute Code(s): Z12.11 - ENCOUNTER FOR SCREENING FOR MALIGNANT NEOPLASM OF COLON SNOMED Code(s): 935113161
--- NOTE | 2023-12-16 09:51 | P.PCN ---
Date of Procedure: 12/16/23 Procedure(s) Performed: PREOPERATIVE DIAGNOSIS: Colon cancer screening with family history POSTOPERATIVE DIAGNOSIS: Mild diverticulosis PROCEDURE: Colonoscopy ANESTHESIA: MAC SURGEON: Neymar Abdullahi M.D. SPECIMENS: None ENDOSCOPIC PROCEDURE: The patient was placed on the endoscopy table in the left decubitus position. The Olympus colonoscope was inserted into the anus and passed under direct visualization to the base of the cecum. The appendiceal orifice was visualized. From that point the scope was slowly withdrawn inspecting all surfaces carefully. There were no neoplastic inflammatory or polypoid lesions throughout the cecum, ascending, transverse, descending, sigmoid and rectum. There was mild left-sided diverticulosis noted. Digital rectal examination was normal. The patient was taken to the recovery room in stable condition per anesthesia guidelines. RECOMMENDATIONS: Resume diet. Repeat colonoscopy 5 years.
[2023-12-16 10:07] LABS: Glucose,Whole Blood 200 mg/dL (70-110)
[2023-12-16 10:15] VITALS: BP 128/83; PULSE 60
== END 2023-12-16 10:43 | disposition home or self-care (01) ==
LOC: ORWHC2ENDO 08:14
PROVIDERS: ATTEND Surgery
DX: Z12.11 Encounter for screening for malignant neoplasm of colon (principal); K57.30 Diverticulosis of large intestine without perforation or abscess without bleeding; E11.9 Type 2 diabetes mellitus without complications; G47.33 Obstructive sleep apnea (adult) (pediatric); M81.0 Age-related osteoporosis without current pathological fracture; Z85.46 Personal history of malignant neoplasm of prostate; Z80.0 Family history of malignant neoplasm of digestive organs; Z79.84 Long term (current) use of oral hypoglycemic drugs; Z98.890 Other specified postprocedural states; Z87.442 Personal history of urinary calculi; Z79.899 Other long term (current) drug therapy; Z91.148 Patient's other noncompliance with medication regimen for other reason
CPT/HCPCS: J2704; G0121

== ENCOUNTER → 2024-03-02 | Outpatient (CLI) | payer MEDICARE, OTHER ==
[2024-03-02 15:22] LABS: Basophils # (A) 0.03 X 10*3/uL (0.00-0.10); Basophils % (A) 0.5 %; Eosinophils # (A) 0.24 X 10*3/uL (0.04-0.35); Eosinophils % (A) 4.2 %; HCT 38.8 % (39.6-50.0); HGB 13.3 g/dL (13.0-17.0); MCH 29.4 pg (27.0-32.0); MCHC 34.3 g/dL (32.0-37.0); MCV 85.8 FL (80.0-97.0); Mean Platelet Volume 10.9 FL (9.5-12.2); Monocytes # (A) 0.52 X 10*3/uL (0.20-1.00); Monocytes % (A) 9.1 %; NRBC Per 100 WBC 0 X 10*3/uL (0.00-0.01); Neutrophils # (A) 3.27 X 10*3/uL (1.80-7.70); Neutrophils % (A) 57.2 %; Platelet Count 145 X 10*3/uL (140-440); RBC 4.52 X 10*6/uL (4.40-5.60); RDW 13.1 % (11.5-14.5); WBC 5.72 X 10*3/uL (4.50-10.00)
[2024-03-02 22:52] LABS: BUN/Creat Ratio 18.86 Ratio (12.00-20.00); Blood Urea Nitrogen 13.2 mg/dL (9.0-27.0); Calcium 9.9 mg/dL (8.7-10.3); Chloride 100 mmol/L (96-109); Glucose 272 mg/dL (70-110); Potassium 4.9 mmol/L (3.5-5.5); Prostate Specific Antigen 0.06 ng/mL (0.000-4.500); Sodium 138 mmol/L (135-145); Testosterone <10.00 ng/dL (86.98-780.10)
== END ==
LOC: LABPAT 12:03
PROVIDERS: ATTEND Urology
DX: Z01.818 Encounter for other preprocedural examination (principal); C61 Malignant neoplasm of prostate; N39.3 Stress incontinence (female) (male)
CPT/HCPCS: 36415; 80048; 84153; 84403; 85025

== ENCOUNTER → 2024-03-05 | Outpatient (CLI) | payer MEDICARE, OTHER ==
[2024-03-05 15:48] LABS: Appearance,Urine Clear (Clear); Bilirubin,Urine Negative (Negative); Blood,Urine Negative (Negative); Color,Urine Yellow (Yellow); Ketones,Urine 15 (Negative); Nitrite,Urine Negative (Negative); Specific Gravity,Urine 1.028 (1.001-1.030); Urobilinogen,Urine 0.2 E.U./DL
== END | disposition home or self-care (01) ==
LOC: LABPAT 10:10
PROVIDERS: ATTEND Urology
DX: Z01.812 Encounter for preprocedural laboratory examination (principal); N39.3 Stress incontinence (female) (male)
CPT/HCPCS: 81003; 87086

== ENCOUNTER 2024-03-10 08:40 | Day surgery (SDC) | payer MEDICARE, OTHER ==
[2024-03-04 14:34] VITALS: BMI 24.4
--- NOTE | 2024-03-09 22:20 | P.HPIHPCON ---
History of Present Illness H&P Date: 03/09/24 Chief Complaint: JAMIL This is a 68-year-old male with history of prostate cancer treated with radical prostatectomy followed by radiation therapy, has developed stress urinary incontinence. Previously underwent a urethral sling by Dr. Woodward at [facility], has been having persistent stress incontinence. Underwent an office cystoscopy that showed no evidence of mesh erosion but poor coaptation of the urethra. Option of an artificial urethral sphincter was discussed with him in details. Aware of the risk which include but not limited to bleeding, infection, persistent incontinence, device malfunction. Discussed also potential of device erosion into the urethra. All his questions were answered in regards to the procedure. He understood all the risk and agreed to proceed Consent for Procedure: I have explained the operation/procedure to the patient, including the risks, benefits, side effects, alternative therapies (including not receiving the proposed treatment or service), the likelihood of the patient achieving his/her goals, and potential recuperation problems for the procedure/sedation/analgesia, as well as any blood products, if indicated. I also explained to the patient the risks, benefits and side effects of the alternatives, as well as the risks related to not receiving the proposed procedure, care, treatment, or services. Past Medical History Past Medical History: Cancer, Diabetes Mellitus, Prostate Disorder, Sleep Apnea/CPAP/BIPAP Additional Past Medical History / Comment(s): Hx kidney stones. Hx prostate cancer 2018 with radiation receives shot every 6 months. Osteoporosis. No device for sleep apnea. History of Any Multi-Drug Resistant Organisms: None Reported Past Surgical History: Hernia Repair, Orthopedic Surgery Additional Past Surgical History / Comment(s): Colonoscopy, hernia repair X2, left rotator cuff repair Past Anesthesia/Blood Transfusion Reactions: No Reported Reaction, Motion Sickness Past Psychological History: No Psychological Hx Reported Smoking Status: Never smoker Past Alcohol Use History: None Reported Past Drug Use History: None Reported - Past Family History Father Family Medical History: Cancer Additional Family Medical History / Comment(s): Prostate cancer. Mother Family Medical History: Cancer, Diabetes Mellitus Additional Family Medical History / Comment(s): Breast cancer. Medications and Allergies Home Medications Medication Instructions Recorded Confirmed Type metFORMIN HCL [Glucophage] 850 mg PO TID 07/20/18 03/04/24 History Lupron. 1 dose IM Q180D 12/12/23 03/04/24 History Prolia (Unknown Dose) 1 dose IM Q180D 12/12/23 03/04/24 History Allergies Allergy/AdvReac Type Severity Reaction Status Date / Time No Known Allergies Allergy Verified 03/04/24 14:22 Surgical - Exam - General no distress, no pain - Eyes normal ocular movement, no pale - ENT normal nares, normal mucosa - Respiratory normal expansion, normal respiratory effort - Abdomen Abdomen: soft, non tender - Psychiatric oriented to time, oriented to person, oriented to place Assessment and Plan Assessment: OR for insertion of artificial urethral sphincter
[~2024-03-10 08:40] MED LIST changes: -DENOSUMAB 60 MG/ML 1 ML SYRINGE SQ NR; +LIDOCAINE 1% (10MG/ML) FOR IV START INTRADERMA PRN
[2024-03-10 09:18] LABS: Glucose,Whole Blood 229 mg/dL (70-110)
[2024-03-10] MEDS: LACTATED RINGERS 1,000 ML IV SCH (09:18)
[2024-03-10] MEDS: ONDANSETRON 4 MG/2 ML VIAL IVP ONE (09:19)
[2024-03-10] MEDS: DEXAMETHASONE SOD PHOSPHATE 4 MG/ML 1 ML VIAL IVP STA (09:20)
[2024-03-10] MEDS: VANCOMYCIN 750 MG in SODIUM CHLORIDE 0.9% 250 ML IVPB PRN (09:22)
[2024-03-10] MEDS: IV FLUID CONTINUATION 1,000 ML IV ONE (09:22)
[2024-03-10] MEDS ORDERED: fentaNYL (PF) 50 MCG/ML 2 ML AMP ONE (09:33)
[2024-03-10] MEDS ORDERED: PROPOFOL 10 MG/ML 20 ML VIAL IV ONE (09:33)
[2024-03-10] MEDS ORDERED: LIDOCAINE 1% INJ 10MG/ML (20 ML MDV) ONE (09:33)
[2024-03-10] MEDS ORDERED: MIDAZOLAM 2 MG/2 ML VIAL ONE (09:33)
[2024-03-10] MEDS ORDERED: ePHEDrine 50 MG/ML 1 ML VIAL ONE (09:33)
[2024-03-10] MEDS: GENTAMICIN 120 MG in SODIUM CHLORIDE 0.9% 100 ML IVPB PRN (09:38)
[2024-03-10] MEDS: GENTAMICIN 80 MG in SODIUM CHLORIDE 0.9% 200 ML IRRIGATION ONE (10:00)
[2024-03-10 11:14] VITALS: TEMP 97.5
[2024-03-10] MEDS: HYDROmorphone 0.5 MG/0.5 ML SYRINGE IVP PRN (11:15)
[2024-03-10 14:21] VITALS: BP 141/73; PULSE 64; RESP 16
--- NOTE | 2024-03-11 07:55 | P.OP ---
Date of Procedure: 03/10/24 Preoperative Diagnosis: Stress urinary incontinence Postoperative Diagnosis: Same Procedure(s) Performed: Insertion of artificial urinary urethral sphincter, cystoscopy Implants: [employer] Anesthesia: SANDROA Surgeon: Tom Mulligan Marketing Finance Manager #1: Luciano Murguia Estimated Blood Loss (ml): 25 Pathology: none sent Condition: stable Disposition: PACU Indications for Procedure: This is a 68-year-old male with history of prostate cancer treated with radical prostatectomy followed by radiation therapy, has developed stress urinary incontinence. Previously underwent a urethral sling by Dr. Woodward at [facility], has been having persistent stress incontinence. Underwent an office cystoscopy that showed no evidence of mesh erosion but poor coaptation of the urethra. Option of an artificial urethral sphincter was discussed with him in details. Aware of the risk which include but not limited to bleeding, infection, persistent incontinence, device malfunction. Discussed also potential of device erosion into the urethra. All his questions were answered in regards to the procedure. He understood all the risk and agreed to proceed Description of Procedure: The patient is brought to the operating suite. He is given a successful general endotracheal anesthesia. He is prepped and draped sterilely. A 12-[place] coud-tip catheter is introduced in the bladder with clear urine return. A midline scrotal incision is made. Retraction secured with the ring retractor. The urethra is felt. I dissect down to the urethra, of note there was significant fibrotic tissue surrounding the urethra secondary to patient's previous radiation. I tediously dissect around the urethra making sure not to injure the urethra. I do this as far proximal as possible. Once I'm completely around the urethra I created a space large enough to place a sphincter. 2 separate location was dissected in order to place tandem cuffs. I then introduced the sizer around the urethra. I measured around the coughs, and a 4 cm cuff was placed proximally and a 3.5 cm cuff was placed distally. I then make a small suprapubic incision. I dissect down to the rectus fascia. It is open. Created and reservoir. I then tunnel a space into the right groin through the external ring. Pass this down into the scrotum. I then placed the balloon reservoir end of the prevesical space and fill a 26 mL of saline. I closed the rectus fascia over with 0 PDS. I then placed the pump in a separate compartment in the scrotum superficial and anterior to the right testicle. I then placed the cuffs which had been prepared around the urethra. I then connected the reservoir to the pump using a straight connect. I then connected the cuffs to the pump using a Y connector. I then cystoscoped the urethra with a flexible cystoscope and I can see the indentation of the sphincters and there is no evidence of injury to the urethra. I then depressed the pump twice out to refill. I then deactivate the sphincters and reactivated to make sure it works does. I then deactivate the sphincter using the button on the pump. The suprapubic incision was closed with 3-0 chromic and a 4-0 Monocryl. The scrotal incisions are closed with 3-0 chromic deep and superficially. I then closed the skin with 3-0 chromic. He Irrigation was antibiotic irrigation throughout the procedure. The patient is awakened and returned recovery room good condition. The sphincter remained is activated for 6 weeks.
== END 2024-03-10 14:40 | disposition home or self-care (01) ==
LOC: OR 08:40
PROVIDERS: ATTEND Urology
DX: N39.3 Stress incontinence (female) (male) (principal); E11.9 Type 2 diabetes mellitus without complications; G47.33 Obstructive sleep apnea (adult) (pediatric); M81.0 Age-related osteoporosis without current pathological fracture; Z80.3 Family history of malignant neoplasm of breast; Z85.46 Personal history of malignant neoplasm of prostate; Z87.442 Personal history of urinary calculi; Z90.79 Acquired absence of other genital organ(s); Z79.84 Long term (current) use of oral hypoglycemic drugs; Z79.899 Other long term (current) drug therapy

== ENCOUNTER → 2024-05-13 | Outpatient (CLI) | payer MEDICARE, OTHER ==
--- NOTE | 2024-05-13 11:12 | XR ---
EXAMINATION TYPE: XR KUB DATE OF EXAM: 05/13/2024 COMPARISON: 09/15/2023 CLINICAL INDICATION: Male, 68 years old with history of N20.0 CALCULUS OF KIDNEY; TECHNIQUE: XR KUB views of the abdomen. FINDINGS: The osseous structures are intact. The bowel gas pattern is nonspecific. Air seen throughout bilater al large and small bowel loops. Bowel contents clears the renal outline. No obvious calcifications. C alcifications in the pelvis appear to be vascular. IMPRESSION: 1. Nonspecific abdomen. No definite suspicious calcifications. Tiny calculi noted by previous CT sca n within the right kidney may be obscured by extensive bowel content. [facility], , 05/13/2024 11:10 AM
== END | disposition home or self-care (01) ==
LOC: RADXRMAIN 10:45
PROVIDERS: ATTEND Urology
DX: N20.0 Calculus of kidney (principal); Z87.442 Personal history of urinary calculi
CPT/HCPCS: 74018

== ENCOUNTER 2024-05-16 07:50 | Inpatient (IN) | payer MEDICARE, OTHER ==
[2024-05-16] MEDS: SODIUM CHLORIDE 0.9% 1,000 ML IV STA ×2 (08:46→08:59)
[2024-05-16] MEDS: ONDANSETRON 4 MG/2 ML VIAL IVP STA (08:47)
[2024-05-16] MEDS: MORPHINE SULFATE 4 MG/ML SYRINGE IVP STA ×2 (08:47→11:33)
[2024-05-16 08:49] LABS: Basophils % (A) 0 %; Eosinophils # (A) 0.1 k/uL (0-0.7); Eosinophils % (A) 1 %; HGB 14.7 gm/dL (13.0-17.5); Lymphocytes # (A) 1.1 k/uL (1.0-4.8); Lymphocytes % (A) 11 %; MCH 28.5 pg (25.0-35.0); MCHC 33.4 g/dL (31.0-37.0); MCV 85.3 fL (80.0-100.0); Mean Platelet Volume 7.9; Monocytes # (A) 0.5 k/uL (0-1.0); Monocytes % (A) 5 %; Neutrophils # (A) 8.5 k/uL (1.3-7.7); Neutrophils % (A) 83 %; Platelet Count 181 k/uL (150-450); RBC 5.16 m/uL (4.30-5.90); RDW 12.6 % (11.5-15.5); WBC 10.2 k/uL (3.8-10.6)
[2024-05-16] MEDS: KETOROLAC 15 MG/ML 1 ML VIAL IVP STA (08:54)
[2024-05-16] MEDS: PANTOPRAZOLE 40 MG/10 ML VIAL IVP STA (08:54)
--- NOTE | 2024-05-16 09:15 | ED ---
General Adult HPI - General Chief complaint: Abdominal Pain Stated complaint: kidney stone Time Seen by Provider: 05/16/24 08:23 Source: patient, RN notes reviewed, old records reviewed Mode of arrival: ambulatory Limitations: no limitations - History of Present Illness Initial comments: Patient is a 68-year-old male who presents emergency department complaining of left flank pain. Diagnosed with a kidney stone by his urologist and was inst ructed to follow-up with his urologist Dr. Abdalla on Friday if symptoms did not improve. Patient states the pain is gotten worse. Has been ongoing since last Friday and he has not been having much p.o. intake or fluid hydration. Feels dehydrated. Denies any diarrhea or constipation. Endorses nausea but no emesis. Endorses left-sided flank pain. Does have a past medical history remarkable for prostate cancer, diabetes, as well as an implantable artificial urethral valve. Denies dysuria or hematuria. Denies fevers. No other acute complaints. Presents for further evaluation at this time. He has been on ketorolac as well as Zofran at home for his symptoms. No longer receiving chemo or radiation for prostate cancer. - Related Data Home Medications Medication Instructions Recorded Confirmed metFORMIN HCL [Glucophage] 850 mg PO TID 07/20/18 05/16/24 Denosumab [Prolia] 1 dose SQ Q180D 05/16/24 05/16/24 Lupron 1 dose IM Q18D 05/16/24 05/16/24 Ondansetron [Zofran] 4 mg PO Q8HR PRN 05/16/24 05/16/24 Tirzepatide [Mounjaro] 2.5 mg SQ WE 05/16/24 05/16/24 Previous Rx's Medication Instructions Recorded Ketorolac [Toradol] 10 mg PO Q6HR PRN #15 tab 03/10/24 Allergies Allergy/AdvReac Type Severity Reaction Status Date / Time No Known Allergies Allergy Verified 05/16/24 10:38 Review of Systems ROS Statement: Those systems with pertinent positive or pertinent negative responses have been documented in the HPI. Review of Systems: CONST: Denies fever EYES: Denies blurry vision ENT: Denies nasal congestion C/V: Denies Chest pain RESP: Denies shortness of breath GI: Endorses left flank pain : Denies dysuria SKIN: Denies rash. MSK: Denies joint pain. NEURO: Denies headache ROS Other: All systems not noted in ROS Statement are negative. Past Medical History Past Medical History: Cancer, Diabetes Mellitus, Prostate Disorder, Sleep Apnea/CPAP/BIPAP Additional Past Medical History / Comment(s): Hx kidney stones. Hx prostate cancer 2018 with radiation receives shot every 6 months. Osteoporosis. No device for sleep apnea. History of Any Multi-Drug Resistant Organisms: None Reported Past Surgical History: Hernia Repair Additional Past Surgical History / Comment(s): Colonoscopy, hernia repair X2. Past Anesthesia/Blood Transfusion Reactions: No Reported Reaction, Motion Sickness Past Psychological History: No Psychological Hx Reported Smoking Status: Never smoker Past Alcohol Use History: None Reported Past Drug Use History: None Reported - Past Family History Father Family Medical History: Cancer Additional Family Medical History / Comment(s): Prostate cancer. Mother Family Medical History: Cancer, Diabetes Mellitus Additional Family Medical History / Comment(s): Breast cancer. General Exam - General Exam Comments Initial Comments: General: Appears in no acute distress. HEAD: Normal with no signs of head trauma. EYES: PERRLA, EOMI, conjunctiva normal, no discharge. ENT: Hearing grossly intact, normal oropharynx. RESPIRATORY: Clear breath sounds bilaterally. No wheezes, rales, or rhonchi. C/V: Regular rate and rhythm. S1 and S2 auscultated, no edema, peripheral pulses 2+ and intact throughout ABD: Abdomen is soft, nondistended. Tender to palpation in the left flank region. Some mild radiation to the suprapubic region. No guarding or rebound tenderness. No peritoneal signs. EXT: Normal range of motion, no obvious deformity SKIN: No rashes or lesions observed on exposed skin. NEURO: Alert and oriented x 4. Limitations: no limitations Course Vital Signs 05/16/24 08:03 Temperature 98.1 F Pulse Rate 80 Respiratory 20 Rate Blood Pressure 157/87 O2 Sat by Pulse 99 Oximetry Medical Decision Making - Medical Decision Making Was pt. sent in by a medical professional or institution (, PA, DINING CHAIR SEAT CUSHION TRIMMER, urgent care, hospital, or [facility]...) When possible be specific @ -No Did you speak to anyone other than the patient for history (EMS, parent, family, police, friend...)? What history was obtained from this source @ -No Did you review nursing and triage notes (agree or disagree)? Why? @ -I reviewed and agree with nursing and triage notes Were old charts reviewed (outside hosp., previous admission, EMS record, old EKG, old radiological studies, urgent care reports/EKG's, [facility] records)? Report findings @ -Reviewed [facility] x-ray from May 13, 2024 which was unremarkable. Differential Diagnosis (chest pain, altered mental status, abdominal pain women, abdominal pain men, vaginal bleeding, weakness, fever, dyspnea, syncope, headache, dizziness, GI bleed, back pain, seizure, CVA, palpatations, mental health, musculoskeletal)? @ -Differential Abdominal Pain Men: Appendicitis, cholecystitis, diverticulosis, ischemic bowel, pancreatitis, hepatitis, UTI, gastroenteritis, AAA, incarcerated hernia, bowel obstruction, constipation, inflammatory bowel, hepatitis, peptic ulcer disease, splenic infarction, perforated viscus, testicular torsion, this is not meant to be an all-inclusive list EKG interpreted by me (3pts min.). @ -None done X-rays interpreted by me (1pt min.). @ -None done CT interpreted by me (1pt min.). @ -CT abdomen pelvis reveals mild to moderate left-sided hydronephrosis secondary to distal left ureteral calculi largest is 5 mm. Patient also has a right middle lobe nodule. U/S interpreted by me (1pt. min.). @ -None done What testing was considered but not performed or refused? (CT, X-rays, U/S, labs)? Why? @ -None What meds were considered but not given or refused? Why? @ -None Did you discuss the management of the patient with other professionals (professionals i.e. , PA, DINING CHAIR SE[employer] C[employer]ION TRIMMER, lab, RT, psych nurse, social services, chemical lab supervisor, te acher, command center officer, case resource manager)? Give summary @ -I spoke with Dr. Murguia of urology who was in agreement this plan. I spoke with the admitting provider, Dr. Hernandez who accepted the admission. Was smoking cessation discussed for >3mins.? @ -No Was critical care preformed (if so, how long)? @ -No Were there social determinants of health that impacted care today? How? (Homelessness, low income, unemployed, alcoholism, drug addiction, transportation, low edu. Level, literacy, decrease access to med. care, alf, rehab)? @ -No Was there de-escalation of care discussed even if they declined (Discuss DNR or withdrawal of care, Hospice)? DNR status @ -No What co-morbidities impacted this encounter? (DM, HTN, Smoking, COPD, CAD, Cancer, CVA, ARF, Chemo, Hep., AIDS, mental health diagnosis, sleep apnea, morbid obesity)? @ -History of kidney stones, prostate cancer Was patient admitted / discharged? Hospital course, mention meds given and route, prescriptions, significant lab abnormalities, going to OR and other pertinent info. @ -Based on the patient's presentation and physical exam, presents with left flank pain. History of kidney stones and prostate cancer as well as an artificial urethral valve. We will obtain abdominal labs, urine studies, as well as a CT abdomen pelvis to evaluate for stones. He was in agreement this plan. He will be symptomatically treated with IV fluids, Toradol, Zofran, Protonix, morphine. Patient was in agreement this plan. Patient's laboratory studies show signs consistent with dehydration as the patient has a lactic acidosis of 2.7, as well as 3+ ketones in his urine. Anion gap is not sufficiently elevated to call the patient DKA at this time. Will continue to monitor. Imaging shows 2 left-sided ureteral calculi. I updated the patient. I also updated him regarding his pulmonary nodule on the right and he expressed understanding that he needs follow-up imaging. I recommend admission for his dehydration which she accepted. I spoke with Dr. Murguia of urology who was in agreement this plan. I spoke with the admitting provider, Dr. Hernandez who accepted the admission. Undiagnosed new problem with uncertain prognosis? @ -No Drug Therapy requiring intensive monitoring for toxicity (Heparin, Nitro, Insulin, Cardizem)? @ -No Were any procedures done? @ -No Diagnosis/symptom? @ -Ureterolithiasis, dehydration Acute, or Chronic, or Acute on Chronic? @ -Acute Uncomplicated (without systemic symptoms) or Complicated (systemic symptoms)? @ -Complicated Side effects of treatment? @ -None Exacerbation, Progression, or Severe Exacerbation] @ -No Poses a threat to life or bodily function? @ -Potentially, yes Diagnosis/symptom? @ -Right lung nodule Acute, or Chronic, or Acute on Chronic? @ -Unknown Uncomplicated (without systemic symptoms) or Complicated (systemic symptoms)? @ -Unknown Side effects of treatment? @ -None Exacerbation, Progression, or Severe Exacerbation] @ -No Poses a threat to life or bodily function? @ -Potentially, however unlikely in the acute setting - Lab Data Result diagrams: 05/16/24 08:35 05/16/24 08:35 Lab Results 05/16/24 05/16/24 05/16/24 Range/Units 08:35 08:35 08:35 WBC 10.2 (3.8-10.6) k/uL RBC 5.16 (4.30-5.90) m/uL Hgb 14.7 (13.0-17.5) gm/dL Hct 44.0 (39.0-53.0) % MCV 85.3 (80.0-100.0) fL MCH 28.5 (25.0-35.0) pg MCHC 33.4 (31.0-37.0) g/dL RDW 12.6 (11.5-15.5) % Plt Count 181 (150-450) k/uL MPV 7.9 Neutrophils % 83 % Lymphocytes % 11 % Monocytes % 5 % Eosinophils % 1 % Basophils % 0 % Neutrophils # 8.5 H (1.3-7.7) k/uL Lymphocytes # 1.1 (1.0-4.8) k/uL Monocytes # 0.5 (0-1.0) k/uL Eosinophils # 0.1 (0-0.7) k/uL Basophils # 0.0 (0-0.2) k/uL Sodium 134 L (137-145) mmol/L Potassium 4.5 (3.5-5.1) mmol/L Chloride 98 (98-107) mmol/L Carbon Dioxide 19 L (22-30) mmol/L Anion Gap 17 mmol/L BUN 22 H (9-20) mg/dL Creatinine 1.06 (0.66-1.25) mg/dL Est GFR (CKD-EPI)AfAm 84 (>60 ml/min/1.73 sqM) Est GFR (CKD-EPI)NonAf 73 (>60 ml/min/1.73 sqM) Glucose 293 H (74-99) mg/dL Lactic Ac Sepsis Rflx Plasma Lactic Acid Ean 2.7 H* (0.7-2.0) mmol/L Calcium 10.6 H (8.4-10.2) mg/dL Total Bilirubin 1.4 H (0.2-1.3) mg/dL AST 44 (17-59) U/L ALT 57 H (4-49) U/L Alkaline Phosphatase 47 (38-126) U/L Total Protein 7.9 (6.3-8.2) g/dL Albumin 4.8 (3.5-5.0) g/dL Amylase 48 (30-110) U/L Lipase 44 (23-300) U/L Urine Color Urine Appearance (Clear) Urine pH (5.0-8.0) Ur Specific [place] (1.001-1.035) Urine Protein (Negative) Urine Glucose (UA) (Negative) Urine Ketones (Negative) Urine Blood (Negative) Urine Nitrite (Negative) Urine Bilirubin (Negative) Urine Urobilinogen (<2.0) mg/dL Ur Leukocyte Esterase (Negative) 05/16/24 05/16/24 Range/Units 09:23 09:28 WBC (3.8-10.6) k/uL RBC (4.30-5.90) m/uL Hgb (13.0-17.5) gm/dL Hct (39.0-53.0) % MCV (80.0-100.0) fL MCH (25.0-35.0) pg MCHC (31.0-37.0) g/dL RDW (11.5-15.5) % Plt Count (150-450) k/uL MPV Neutrophils % % Lymphocytes % % Monocytes % % Eosinophils % % Basophils % % Neutrophils # (1.3-7.7) k/uL Lymphocytes # (1.0-4.8) k/uL Monocytes # (0-1.0) k/uL Eosinophils # (0-0.7) k/uL Basophils # (0-0.2) k/uL Sodium (137-145) mmol/L Potassium (3.5-5.1) mmol/L Chloride (98-107) mmol/L Carbon Dioxide (22-30) mmol/L Anion Gap mmol/L BUN (9-20) mg/dL Creatinine (0.66-1.25) mg/dL Est GFR (CKD-EPI)AfAm (>60 ml/min/1.73 sqM) Est GFR (CKD-EPI)NonAf (>60 ml/min/1.73 sqM) Glucose (74-99) mg/dL Lactic Ac Sepsis Rflx Y Plasma Lactic Acid Ean (0.7-2.0) mmol/L Calcium (8.4-10.2) mg/dL Total Bilirubin (0.2-1.3) mg/dL AST (17-59) U/L ALT (4-49) U/L Alkaline Phosphatase (38-126) U/L Total Protein (6.3-8.2) g/dL Albumin (3.5-5.0) g/dL Amylase (30-110) U/L Lipase (23-300) U/L Urine Color Light Yellow Urine Appearance Clear (Clear) Urine pH 6.0 (5.0-8.0) Ur Specific [place] 1.024 (1.001-1.035) Urine Protein Trace H (Negative) Urine Glucose (UA) 4+ H (Negative) Urine Ketones 3+ H (Negative) Urine Blood Negative (Negative) Urine Nitrite Negative (Negative) Urine Bilirubin Negative (Negative) Urine Urobilinogen <2.0 (<2.0) mg/dL Ur Leukocyte Esterase Negative (Negative) Disposition Clinical Impression: Ureterolithiasis, Dehydration, Lung nodule Disposition: ADMITTED IP TO THIS HOSP Condition: Stable Time of Disposition: 10:55
[2024-05-16 09:18] LABS: ALT 57 U/L (4-49); AST 44 U/L (17-59); African American GFR (CKD) 84 (>60 ml/min/1.73 sqM); Albumin 4.8 g/dL (3.5-5.0); Alkaline Phosphatase 47 U/L (38-126); Amylase 48 U/L (30-110); Anion Gap 17 mmol/L; Blood Urea Nitrogen 22 mg/dL (9-20); Calcium 10.6 mg/dL (8.4-10.2); Carbon Dioxide 19 mmol/L (22-30); Chloride 98 mmol/L (98-107); Glucose 293 mg/dL (74-99); Lipase 44 U/L (23-300); Non-African American GFR(CKD) 73 (>60 ml/min/1.73 sqM); Potassium 4.5 mmol/L (3.5-5.1); Sodium 134 mmol/L (137-145); Total Bilirubin 1.4 mg/dL (0.2-1.3); Total Protein 7.9 g/dL (6.3-8.2)
[2024-05-16 09:35] LABS: Appearance,Urine Clear (Clear); Bilirubin,Urine Negative (Negative); Blood,Urine Negative (Negative); Color,Urine Light Yellow; Glucose,Urine (UA) 4+ (Negative); Leukocyte Esterase,Urine Negative (Negative); Nitrite,Urine Negative (Negative); Protein,Urine Trace (Negative); Specific Gravity,Urine 1.024 (1.001-1.035); Urobilinogen,Urine <2.0 mg/dL (<2.0)
--- NOTE | 2024-05-16 09:41 | CT ---
EXAMINATION TYPE: CT abdomen pelvis wo con DATE OF EXAM: 05/16/2024 COMPARISON: 09/26/2023 CLINICAL INDICATION: Male, 68 years old with history of left flank pain; PHH, RENAL STONES, LEFT FLAN K PAIN, NAUSEA TECHNIQUE: CT scan of the abdomen and pelvis is performed without oral or IV contrast. CT DLP: 580.[address] CTDI: mGy Automated exposure control for dose reduction was used. FINDINGS: There is a 7.3 mm nodule in the right middle lobe otherwise the lungs are clear. There are multiple gallstones. There is no biliary ductal dilatation. The margins of the liver appears lobulated raising the question of cirrhosis. There is no organomegal y of the liver, pancreas, spleen or adrenal glands. There are 2 nonobstructing 2 mm calcifications in the right kidney. There is mild to moderate hydrone phrosis and hydroureter of the left kidney secondary to 2 distal ureteral calculi just proximal to th e UVJ. The larger more distal calculus is approximately 5 mm. There are no calcifications within the left kidney. The caliber of the abdominal aorta is normal and there is no retroperitoneal adenopathy or hemorrhage . The bowel loops are normal in caliber is no evidence of obstruction. No inflammatory changes are iden tified in the mesentery and there is no free intraperitoneal air or fluid. There is no pelvic mass, free fluid, abscess or adenopathy. There is a reservoir for urinary sphincte r in the anterior midline pelvis. There is surgical absence of the prostate gland. The osseous struct ures and soft tissues are unremarkable. IMPRESSION: 1. Mild to moderate left hydronephrosis secondary to 2 distal left ureteral calculi the largest of wh ich is 5 mm as described above. 2. 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 3. cholelithiasis. 4. Probable cirrhosis of liver and clinical correlation recommended. 5. 7.3 mm right middle lobe nodule and CT of the thorax is recommended to survey the lung parenchyma in its entirety. Additional follow-up may be indicated. [facility], Workstation: TI, 05/16/2024 9:38 AM
[2024-05-16 10:40] LABS: Ketones,Urine 3+ (Negative)
[2024-05-16] MEDS ORDERED: NALOXONE 0.4 MG/ML 1 ML VIAL IV PRN (10:58)
[2024-05-16] MEDS ORDERED: ACETAMINOPHEN TAB 325 MG TAB PO PRN (10:58)
[2024-05-16] MEDS: SODIUM CHLORIDE 0.9% 1,000 ML IV SCH (11:22)
--- NOTE | 2024-05-16 11:27 | P.GSCN ---
History of Present Illness Consult date: 05/16/24 History of present illness: 68-year-old male well known to for prostate cancer. He has undergone a radical prostatectomy with postoperative radiation as well as a sphincter for incontinence. He was recently diagnosed with left ureteral stones. Because of persistent colic he comes into the hospital. A computed tomography scan identifies 2 distal ureteral stones on the left side. He is admitted for IV fluids and pain control we are asked see the patient.the patient has no fever. His white count is not elevated. The urine does not look infected. Review of Systems All systems: negative - Constitutional Denies fever, Denies weight loss - EENT Eyes: denies blurred vision Ears, nose, mouth and throat: Denies dysphagia - Cardiovascular Denies chest pain, Denies shortness of breath - Respiratory Denies cough, Denies 7 - Gastrointestinal Reports as per HPI - Genitourinary Denies dysuria, Denies hematuria - Integumentary Denies rash, Denies unusual bruising - Neurological Denies headaches, Denies syncope - Hematologic/Lymphatic Denies easy bleeding, Denies easy bruising Past Medical History Past Medical History: Cancer, Diabetes Mellitus, Prostate Disorder, Sleep Apnea/CPAP/BIPAP Additional Past Medical History / Comment(s): Hx kidney stones. Hx prostate cancer 2018 with radiation receives shot every 6 months. Osteoporosis. No device for sleep apnea. History of Any Multi-Drug Resistant Organisms: None Reported Past Surgical History: Hernia Repair Additional Past Surgical History / Comment(s): Colonoscopy, hernia repair X2. Past Anesthesia/Blood Transfusion Reactions: No Reported Reaction, Motion Sickness Past Psychological History: No Psychological Hx Reported Smoking Status: Never smoker Past Alcohol Use History: None Reported Past Drug Use History: None Reported - Past Family History Father Family Medical History: Cancer Additional Family Medical History / Comment(s): Prostate cancer. Mother Family Medical History: Cancer, Diabetes Mellitus Additional Family Medical History / Comment(s): Breast cancer. Medications and Allergies Home Medications Medication Instructions Recorded Confirmed Type metFORMIN HCL [Glucophage] 850 mg PO TID 07/20/18 05/16/24 History Ketorolac [Toradol] 10 mg PO Q6HR PRN #15 tab 03/10/24 05/16/24 Rx Denosumab [Prolia] 1 dose SQ Q180D 05/16/24 05/16/24 History Lupron 1 dose IM Q18D 05/16/24 05/16/24 History Ondansetron [Zofran] 4 mg PO Q8HR PRN 05/16/24 05/16/24 History Tirzepatide [Mounjaro] 2.5 mg SQ WE 05/16/24 05/16/24 History Allergies Allergy/AdvReac Type Severity Reaction Status Date / Time No Known Allergies Allergy Verified 05/16/24 10:38 Surgical - Exam Vital Signs Temp Pulse Resp BP Pulse Ox 98.1 F 80 20 157/87 99 05/16/24 08:03 05/16/24 08:03 05/16/24 08:03 05/16/24 08:03 05/16/24 08:03 - General well developed, well nourished, no distress - Eyes normal ocular movement, no icteric - ENT no hearing loss, no congestion - Neck no masses, trachea midline - Respiratory normal respiratory effort, clear to auscultation - Abdomen Abdomen: soft, non tender, no guarding, no rigid, no rebound - Genitourinary sphincter pump in the scrotum - Integumentary no rash, no abnormal pigmentation - Neurologic no disoriented, no combative - Psychiatric oriented to time, oriented to person, oriented to place, speech is normal, christopher ry intact Results - Labs 05/16/24 08:35 05/16/24 08:35 Abnormal Lab Results - Last 24 Hours (Table) 05/16/24 05/16/24 05/16/24 Range/Units 08:35 08:35 08:35 Neutrophils # 8.5 H (1.3-7.7) k/uL Sodium 134 L (137-145) mmol/L Carbon Dioxide 19 L (22-30) mmol/L BUN 22 H (9-20) mg/dL Glucose 293 H (74-99) mg/dL Plasma Lactic Acid Ean 2.7 H* (0.7-2.0) mmol/L Calcium 10.6 H (8.4-10.2) mg/dL Total Bilirubin 1.4 H (0.2-1.3) mg/dL ALT 57 H (4-49) U/L Urine Protein (Negative) Urine Glucose (UA) (Negative) Urine Ketones (Negative) 05/16/24 Range/Units 09:28 Neutrophils # (1.3-7.7) k/uL Sodium (137-145) mmol/L Carbon Dioxide (22-30) mmol/L BUN (9-20) mg/dL Glucose (74-99) mg/dL Plasma Lactic Acid Ean (0.7-2.0) mmol/L Calcium (8.4-10.2) mg/dL Total Bilirubin (0.2-1.3) mg/dL ALT (4-49) U/L Urine Protein Trace H (Negative) Urine Glucose (UA) 4+ H (Negative) Urine Ketones 3+ H (Negative) Diabetes panel 05/16/24 Range/Units 08:35 Sodium 134 L (137-145) mmol/L Potassium 4.5 (3.5-5.1) mmol/L Chloride 98 (98-107) mmol/L Carbon Dioxide 19 L (22-30) mmol/L BUN 22 H (9-20) mg/dL Creatinine 1.06 (0.66-1.25) mg/dL Glucose 293 H (74-99) mg/dL Calcium 10.6 H (8.4-10.2) mg/dL AST 44 (17-59) U/L ALT 57 H (4-49) U/L Alkaline Phosphatase 47 (38-126) U/L Total Protein 7.9 (6.3-8.2) g/dL Albumin 4.8 (3.5-5.0) g/dL Calcium panel 05/16/24 Range/Units 08:35 Calcium 10.6 H (8.4-10.2) mg/dL Albumin 4.8 (3.5-5.0) g/dL Pituitary panel 05/16/24 Range/Units 08:35 Sodium 134 L (137-145) mmol/L Potassium 4.5 (3.5-5.1) mmol/L Chloride 98 (98-107) mmol/L Carbon Dioxide 19 L (22-30) mmol/L BUN 22 H (9-20) mg/dL Creatinine 1.06 (0.66-1.25) mg/dL Glucose 293 H (74-99) mg/dL Calcium 10.6 H (8.4-10.2) mg/dL Adrenal panel 05/16/24 Range/Units 08:35 Sodium 134 L (137-145) mmol/L Potassium 4.5 (3.5-5.1) mmol/L Chloride 98 (98-107) mmol/L Carbon Dioxide 19 L (22-30) mmol/L BUN 22 H (9-20) mg/dL Creatinine 1.06 (0.66-1.25) mg/dL Glucose 293 H (74-99) mg/dL Calcium 10.6 H (8.4-10.2) mg/dL Total Bilirubin 1.4 H (0.2-1.3) mg/dL AST 44 (17-59) U/L ALT 57 H (4-49) U/L Alkaline Phosphatase 47 (38-126) U/L Total Protein 7.9 (6.3-8.2) g/dL Albumin 4.8 (3.5-5.0) g/dL - Imaging CT scan - abdomen: report reviewed, image reviewed CT scan - pelvis: report reviewed, image reviewed Assessment and Plan Assessment: impression: Left ureteral calculi with colic and dehydration Recommendations: The patient is admitted for IV fluids and parental narcotics. I will notify of his admission. Depending on how he does in the next 24 hours as to further recommendations whether stone manipulation will be required.
[2024-05-16] MEDS ORDERED: DEXTROSE 50% SYRINGE 50 ML IVP PRN ×6 (12:41→17:51)
--- NOTE | 2024-05-16 12:45 | P.HPIM ---
History of Present Illness H&P Date: 05/16/24 History of present illness; patient is 68-year-old gentleman with past medical history significant for diabetes mellitus, prostate cancer who presented the ER because of left-sided flank pain. Patient stated that he normally follows up outpatient with his urologist for kidney stone. Patient stated that since this Friday he has been having worsening left-sided flank pain. Patient has been nausea and vomiting. Patient unable to keep anything down. There was no complaint of fever or chills. Denies any chest pain or shortness of breath. There was no complaint of increased frequency of urination, burning micturition or hematuria. Because of this flank pain, patient brought to the ER Initial lab work done in the ER showed WBC 10.2, hemoglobin 14.7, platelet count 181, sodium 134, potassium 4.5, BUN 22, creatinine 1.06, lactate 2.7, calcium 10.6, bilirubin 1.4 UA negative for infection CT abdomen and pelvis done showed mild to moderate left hydronephrosis secondary to distal left ureteral calculi Patient admitted to internal medicine service REVIEW OF SYSTEMS: CONSTITUTIONAL: No fever, no malaise, no fatigue. HEENT: No recent visual problems or hearing problems. Denied any sore throat. CARDIOVASCULAR: No chest pain, orthopnea, PND, no palpitations, no syncope. PULMONARY: No shortness of breath, no cough, no hemoptysis. GASTROINTESTINAL: As mentioned above NEUROLOGICAL: No headaches, no weakness, no numbness. HEMATOLOGICAL: Denies any bleeding or petechiae. GENITOURINARY: As mentioned above MUSCULOSKELETAL/RHEUMATOLOGICAL: Denies any joint pain, swelling, or any muscle pain. ENDOCRINE: Denies any polyuria or polydipsia. The rest of the 14-point review of systems is negative. PHYSICAL EXAMINATION: GENERAL: The patient is alert and oriented x3, not in any acute distress. Well developed, well nourished. HEENT: Pupils are round and equally reacting to light. EOMI. No scleral icterus. No conjunctival pallor. Normocephalic, atraumatic. No pharyngeal erythema. No thyromegaly. CARDIOVASCULAR: S1 and S2 present. No murmurs, rubs, or gallops. PULMONARY: Chest is clear to auscultation, no wheezing or crackles. ABDOMEN: Soft, nontender, nondistended, normoactive bowel sounds. No palpable organomegaly. MUSCULOSKELETAL: No joint swelling or deformity. EXTREMITIES: No cyanosis, clubbing, or pedal edema. NEUROLOGICAL: Gross neurological examination did not reveal any focal deficits. SKIN: No rashes. Assessment and plan Left ureteral calculi Left-sided hydronephrosis secondary to renal calculus History of radical prostatectomy with sphincter Abdominal pain Lactic acidosis Hypercalcemia Hyperbilirubinemia Diabetes mellitus Monitor vital signs Monitor CBC Monitor CMP Ordered antiemetics Ordered IV fluids Ordered pain management with as needed morphine and [place] Ordered sliding scale insulin Ordered urology consult Labs and medication were reviewed.. Continue same treatment. Continue with symptomatic treatment. Resume home medication. Monitor labs and vitals. DVT and GI prophylaxis. Further recommendations as per clinical course of the patient Dictation was produced using [employer] dictation software. please excuse any grammatical, word or spelling errors. Past Medical History Past Medical History: Cancer, Diabetes Mellitus, Prostate Disorder, Sleep Apnea/CPAP/BIPAP Additional Past Medical History / Comment(s): Hx kidney stones. Hx prostate cancer 2018 with radiation receives shot every 6 months. Osteoporosis. No device for sleep apnea. History of Any Multi-Drug Resistant Organisms: None Reported Past Surgical History: Hernia Repair Additional Past Surgical History / Comment(s): Colonoscopy, hernia repair X2. Past Anesthesia/Blood Transfusion Reactions: No Reported Reaction, Motion Sickness Past Psychological History: No Psychological Hx Reported Smoking Status: Never smoker Past Alcohol Use History: None Reported Past Drug Use History: None Reported - Past Family History Father Family Medical History: Cancer Additional Family Medical History / Comment(s): Prostate cancer. Mother Family Medical History: Cancer, Diabetes Mellitus Additional Family Medical History / Comment(s): Breast cancer. Medications and Allergies Home Medications Medication Instructions Recorded Confirmed Type metFORMIN HCL [Glucophage] 850 mg PO TID 07/20/18 05/16/24 History Ketorolac [Toradol] 10 mg PO Q6HR PRN #15 tab 03/10/24 05/16/24 Rx Denosumab [Prolia] 1 dose SQ Q180D 05/16/24 05/16/24 History Lupron 1 dose IM Q18D 05/16/24 05/16/24 History Ondansetron [Zofran] 4 mg PO Q8HR PRN 05/16/24 05/16/24 History Tirzepatide [Mounjaro] 2.5 mg SQ WE 05/16/24 05/16/24 History Allergies Allergy/AdvReac Type Severity Reaction Status Date / Time No Known Allergies Allergy Verified 05/16/24 10:38 Physical Exam Vitals: Vital Signs Temp Pulse Resp BP Pulse Ox 05/16/24 08:03 98.1 F 80 20 157/87 99 Intake and Output 05/15/24 05/16/24 05/16/24 22:59 06:59 14:59 Other: Weight 79.379 kg Results CBC & Chem 7: 05/16/24 08:35 05/16/24 08:35 Labs: Abnormal Lab Results - Last 24 Hours (Table) 05/16/24 05/16/24 05/16/24 Range/Units 08:35 08:35 08:35 Neutrophils # 8.5 H (1.3-7.7) k/uL Sodium 134 L (137-145) mmol/L Carbon Dioxide 19 L (22-30) mmol/L BUN 22 H (9-20) mg/dL Glucose 293 H (74-99) mg/dL Plasma Lactic Acid Ean 2.7 H* (0.7-2.0) mmol/L Calcium 10.6 H (8.4-10.2) mg/dL Total Bilirubin 1.4 H (0.2-1.3) mg/dL ALT 57 H (4-49) U/L Urine Protein (Negative) Urine Glucose (UA) (Negative) Urine Ketones (Negative) 05/16/24 Range/Units 09:28 Neutrophils # (1.3-7.7) k/uL Sodium (137-145) mmol/L Carbon Dioxide (22-30) mmol/L BUN (9-20) mg/dL Glucose (74-99) mg/dL Plasma Lactic Acid Ean (0.7-2.0) mmol/L Calcium (8.4-10.2) mg/dL Total Bilirubin (0.2-1.3) mg/dL ALT (4-49) U/L Urine Protein Trace H (Negative) Urine Glucose (UA) 4+ H (Negative) Urine Ketones 3+ H (Negative)
[2024-05-16] MEDS: HYDROcodone/APAP 5-325MG 1 EACH TAB PO PRN (14:54)
[2024-05-16] MEDS: KETOROLAC 15 MG/ML 1 ML VIAL IVP PRN (14:54)
[2024-05-16] MEDS: ONDANSETRON 4 MG/2 ML VIAL IVP PRN (15:03)
[2024-05-16] MEDS: MORPHINE SULFATE 4 MG/ML SYRINGE IV PRN (16:00)
[2024-05-16 17:15] LABS: Glucose,Whole Blood 267 mg/dL (70-110)
[2024-05-16] MEDS: INSULIN ASPART (NovoLOG) 100 UNIT/ML VIAL SQ SCH ×2 (17:44→20:24)
[2024-05-16 19:42] LABS: Glucose,Whole Blood 214 mg/dL (70-110)
[2024-05-16] MEDS ORDERED: INSULIN ASPART (NovoLOG) 100 UNIT/ML VIAL SQ SCH (21:00)
[2024-05-17 05:54] LABS: Glucose,Whole Blood 149 mg/dL (70-110)
[2024-05-17 08:40] LABS: ALT 46 U/L (10-49); AST 34 U/L (14-35); Albumin 3.7 g/dL (3.8-4.9); Albumin/Globulin Ratio 1.76 Ratio (1.60-3.17); Alkaline Phosphatase 42 U/L (41-126); BUN/Creat Ratio 14.23 Ratio (12.00-20.00); Basophils # (A) 0.02 X 10*3/uL (0.00-0.10); Basophils % (A) 0.3 %; Blood Urea Nitrogen 18.5 mg/dL (9.0-27.0); Calcium 8.9 mg/dL (8.7-10.3); Carbon Dioxide 25.3 mmol/L (21.6-31.8); Chloride 102 mmol/L (96-109); Eosinophils # (A) 0.11 X 10*3/uL (0.04-0.35); Eosinophils % (A) 1.8 %; Globulin 2.1 g/dL (1.6-3.3); Glucose 154 mg/dL (70-110); HCT 36.6 % (39.6-50.0); HGB 12.1 g/dL (13.0-17.0); Lymphocytes % (A) 20.2 %; MCH 28.3 pg (27.0-32.0); MCHC 33.1 g/dL (32.0-37.0); MCV 85.5 FL (80.0-97.0); Mean Platelet Volume 10.7 FL (9.5-12.2); Monocytes # (A) 0.61 X 10*3/uL (0.20-1.00); Monocytes % (A) 10.3 %; NRBC Per 100 WBC 0 X 10*3/uL (0.00-0.01); Neutrophils # (A) 3.98 X 10*3/uL (1.80-7.70); Neutrophils % (A) 66.9 %; Platelet Count 119 X 10*3/uL (140-440); RBC 4.28 X 10*6/uL (4.40-5.60); RDW 12.5 % (11.5-14.5); Sodium 138 mmol/L (135-145); Total Bilirubin 0.7 mg/dL (0.3-1.2); Total Protein 5.8 g/dL (6.2-8.2); WBC 5.95 X 10*3/uL (4.50-10.00)
[2024-05-17 12:28] LABS: Glucose,Whole Blood 153 mg/dL (70-110)
--- NOTE | 2024-05-17 12:56 | P.PN ---
Subjective Progress Note Date: 05/17/24 Principal diagnosis: Left ureteral calculi The patient states that he has experienced persistent intractable left flank pain since May 11, 2024. This requires the ongoing use of parenteral analgesics. Objective - Vital Signs Vital signs: Vital Signs Temp 98.3 F 05/17/24 01:38 Pulse 58 L 05/17/24 01:38 Resp 16 05/17/24 01:38 BP 110/71 05/17/24 01:38 Pulse Ox 97 05/17/24 01:38 FiO2 Intake & Output 05/16/24 05/17/24 05/17/24 18:59 06:59 18:59 Intake Total 680 Balance 680 Weight 79.379 kg Intake: Oral 680 Other: Voiding Method Toilet Toilet # Voids 3 - Constitutional General appearance: Present: average body habitus, cooperative, mild distress - Psychiatric Psychiatric: Present: A&O x's 3 - Labs CBC & Chem 7: 05/17/24 05:51 05/17/24 05:51 Labs: Abnormal Lab Results - Last 24 Hours (Table) 05/16/24 05/16/24 05/16/24 Range/Units 08:35 08:35 08:35 Neutrophils # 8.5 H (1.3-7.7) k/uL Sodium 134 L (137-145) mmol/L Carbon Dioxide 19 L (22-30) mmol/L BUN 22 H (9-20) mg/dL Glucose 293 H (74-99) mg/dL POC Glucose (mg/dL) (70-110) mg/dL Plasma Lactic Acid Ean 2.7 H* (0.7-2.0) mmol/L Calcium 10.6 H (8.4-10.2) mg/dL Total Bilirubin 1.4 H (0.2-1.3) mg/dL ALT 57 H (4-49) U/L Urine Protein (Negative) Urine Glucose (UA) (Negative) Urine Ketones (Negative) 05/16/24 05/16/24 05/16/24 Range/Units 09:28 17:14 19:41 Neutrophils # (1.3-7.7) k/uL Sodium (137-145) mmol/L Carbon Dioxide (22-30) mmol/L BUN (9-20) mg/dL Glucose (74-99) mg/dL POC Glucose (mg/dL) 267 H 214 H (70-110) mg/dL Plasma Lactic Acid Ean (0.7-2.0) mmol/L Calcium (8.4-10.2) mg/dL Total Bilirubin (0.2-1.3) mg/dL ALT (4-49) U/L Urine Protein Trace H (Negative) Urine Glucose (UA) 4+ H (Negative) Urine Ketones 3+ H (Negative) 05/17/24 Range/Units 05:53 Neutrophils # (1.3-7.7) k/uL Sodium (137-145) mmol/L Carbon Dioxide (22-30) mmol/L BUN (9-20) mg/dL Glucose (74-99) mg/dL POC Glucose (mg/dL) 149 H (70-110) mg/dL Plasma Lactic Acid Ean (0.7-2.0) mmol/L Calcium (8.4-10.2) mg/dL Total Bilirubin (0.2-1.3) mg/dL ALT (4-49) U/L Urine Protein (Negative) Urine Glucose (UA) (Negative) Urine Ketones (Negative) Assessment and Plan (1) Calculus of ureter Current Visit: Yes Status: Acute Code(s): N20.1 - CALCULUS OF URETER SNOMED Code(s): 17507691 Plan: The patient was offered the option of continued medical expulsion therapy versus ureteroscopic removal of the calculus. He request that the latter be performed as soon as possible. Therefore, I was able to make arrangements for him to undergo cystoscopy, left ureteroscopy with holmium laser lithotripsy and possible stone basketing, possible ureteral stent insertion later today. The patient has previously undergone this procedure and is aware of potential risks, which include anesthesia, bleeding, infection, ureteral injury, and inability to remove the calculi.
[2024-05-17] MEDS: SODIUM CHLORIDE 0.9% 1,000 ML IV SCH (13:36)
[2024-05-17 17:03] LABS: Glucose,Whole Blood 145 mg/dL (70-110)
[2024-05-17] MEDS: DEXAMETHASONE SOD PHOSPHATE 4 MG/ML 1 ML VIAL IVP STA (17:19)
[2024-05-17] MEDS ORDERED: fentaNYL (PF) 50 MCG/ML 2 ML AMP ONE (17:32)
[2024-05-17] MEDS ORDERED: GLYCOPYRROLATE 0.2 MG/ML 2 ML VIAL ONE (17:32)
[2024-05-17] MEDS ORDERED: PROPOFOL 10 MG/ML 20 ML VIAL IV ONE (17:32)
[2024-05-17] MEDS ORDERED: LIDOCAINE 1% INJ 10MG/ML (20 ML MDV) ONE (17:32)
[2024-05-17] MEDS ORDERED: ceFAZolin 1 GM/50 ML BAG (PMX) ONE (17:32)
[2024-05-17] MEDS ORDERED: ePHEDrine 50 MG/ML 1 ML VIAL ONE (17:32)
[2024-05-17] MEDS ORDERED: PHENYLEPHRINE 10 MG/ML VIAL ONE (17:32)
[2024-05-17] MEDS ORDERED: MIDAZOLAM 2 MG/2 ML VIAL ONE (17:32)
[2024-05-17] MEDS ORDERED: SUCCINYLCHOLINE CHLORIDE 200 MG/10 ML VIAL IV ONE (17:32)
[2024-05-17] MEDS: LACTATED RINGERS 1,000 ML IV ONE ×2 (17:33→17:57)
[2024-05-17] MEDS: IOPAMIDOL-370 50ML BTL MISCELLANE ONE (18:02)
--- NOTE | 2024-05-17 18:50 | P.OP ---
Date of Procedure: 05/17/24 Preoperative Diagnosis: Left ureteral calculus Postoperative Diagnosis: Same Procedure(s) Performed: Ureteroscopy, left ureteral balloon dilation, left ureteroscopy with Holmium laser lithotripsy and stone basketing Anesthesia: SHARA Surgeon: Alfa Wheeler Estimated Blood Loss (ml): 0 IV fluids (ml): 400 Pathology: none sent Condition: stable Disposition: PACU Indications for Procedure: The patient is a 68-year-old white male with a history of urolithiasis. He is now admitted with left renal colic due to a 4 to 5 mm left distal ureteral calculus. CT scan suggest there may be a smaller adjacent calculus. Due to intractable symptoms, he has elected to undergo ureteroscopic removal of the calculus. Operative Findings: 4 to 5 mm left distal ureteral calculus, fragmented completely. Description of Procedure: The patient was taken to the operating room and placed in the dorsolithotomy position, with legs supported in Iggy stirrups. The external genitalia was prepped and draped sterilely. The external urinary sphincter was deactivated. The 30 lens was used to introduce the 17.5-Burkinan Matute cystoscopic sheath through the urethra, but it could not be passed beyond the level of the external urinary sphincter. The Matute semirigid ureteroscope was advanced into the bladder under direct vision, and the left ureteral orifice was cannulated. However, the intramural portion of the ureter was narrowed. A 0.035 inch Glidewire was passed through the ureteroscope and advanced up to the left renal pelvis. The ureteroscope was removed, and a 12 Burkinan, 4 cm balloon dilating catheter was used to dilate the intramural portion of the ureter. The balloon dilating catheter was removed, and the ureteroscope was again advanced into the bladder under direct vision. The left ureteral orifice was cannulated, and the ureteroscope was slowly advanced up to the calculus. The 365 micron Holmium laser probe was passed through the ureteroscope, and lithotripsy was performed. After fragmenting the calculus, all calculus fragments were removed from the bladder and ureter and deposited into the bladder using a 1.9 Burkinan nitinol basket. Final inspection of the ureter showed no evidence of ureteral perforation, and no residual calculus fragments. Mild edema was noted at the site of stone impaction. The bladder appeared somewhat distended, and therefore after removing the ureteroscope the bladder was drained using a 12 Burkinan red rubber catheter. After removing the catheter, the external urinary sphincter was reactivated. The patient tolerated the procedure well and was taken to the recovery room in stable condition. IPTER QUINONEZ Report: Procedure Acuity: Urgent Stone Size and Location: 4 to 5 mm, left distal ureter Ureteral Dilation: Balloon Dilation Ureteral Access Sheath Used: No Stone Sent for Analysis: No All Stones/Fragments Were Removed with a Basket: Yes Complications: No Preoperative Antibiotics Given: Yes Stent Placed: No
[2024-05-17 20:22] LABS: Glucose,Whole Blood 186 mg/dL (70-110)
--- NOTE | 2024-05-17 20:59 | FL ---
Fluoroscopy INDICATION: Pain FINDINGS: Fluoroscopy time: 17.4 seconds. Total dose area product (DAP) in uGy*m?, mGy*cm? (or similar): 1.0173 Images obtained: 2. Retrograde urogram IMPRESSION: 1. Documentation of fluoroscopy. [facility], , 05/17/2024 8:57 PM
--- NOTE | 2024-05-17 23:18 | PN ---
PROGRESS NOTE DATE OF SERVICE: 05/17/2024 SUBJECTIVE: This is a 68-year-old gentleman admitted with left flank pain, urolithiasis as well as some pain. Urology is planning surgery. No evidence of infection. OBJECTIVE: VITAL SIGNS: Pulse is 56, blood pressure 134/76, respirations 16. CHEST: Clear. CARDIOVASCULAR: S1, S2. ABDOMEN: Soft, mild diffuse discomfort in the left renal angle and left side of the abdomen. NERVOUS SYSTEM: Nonfocal. LABORATORY DATA: Reviewed. ASSESSMENT: 1. Left ureteral calculi with left urolithiasis and as well as [id number] left hydronephrosis. 2. Severe abdominal pain. 3. Diabetes mellitus, type 2. 4. Full code. RECOMMENDATIONS AND DISCUSSION: This is a 68-year-old gentleman presented with multiple medical issues. We will monitor the patient closely. Closely follow with Urology, Pain Management for possible cystoscopy and stent. Guarded prognosis. Further recommendations to follow. No evidence of infection as above. MMODL / IJN: [id number] /
[2024-05-18 03:02] VITALS: RESP 17
[2024-05-18 06:12] LABS: Glucose,Whole Blood 264 mg/dL (70-110)
[2024-05-18 07:26] VITALS: BP 142/83; PULSE 56; TEMP 97.4
--- NOTE | 2024-05-18 08:50 | P.PN ---
Subjective Progress Note Date: 05/18/24 Principal diagnosis: Left ureteral calculi The patient underwent ureteroscopic removal of his left distal ureteral calculus yesterday. He currently denies pain and is anxious to be discharged home. Objective - Vital Signs Vital signs: Vital Signs Temp 97.4 F L 05/18/24 07:08 Pulse 56 L 05/18/24 07:08 Resp 17 05/18/24 07:08 BP 142/83 05/18/24 07:08 Pulse Ox 97 05/18/24 07:08 FiO2 Intake & Output 05/17/24 05/18/24 05/18/24 18:59 06:59 18:59 Intake Total 900 Output Total 0 550 Balance 900 -550 Intake: IV 900 Output: Urine 550 Estimated Blood Loss 0 Other: Voiding Method Toilet Toilet # Voids 3 2 - Constitutional General appearance: Present: average body habitus, cooperative, no acute distress - Psychiatric Psychiatric: Present: A&O x's 3 - Labs CBC & Chem 7: 05/17/24 05:51 05/17/24 05:51 Labs: Abnormal Lab Results - Last 24 Hours (Table) 05/17/24 05/17/24 05/17/24 Range/Units 12:26 17:01 20:21 POC Glucose (mg/dL) 153 H 145 H 186 H (70-110) mg/dL 05/18/24 Range/Units 06:10 POC Glucose (mg/dL) 264 H (70-110) mg/dL Assessment and Plan (1) Calculus of ureter Current Visit: Yes Status: Acute Code(s): N20.1 - CALCULUS OF URETER SNOMED Code(s): 92070069 Plan: The patient is urologically stable for discharge. I have advised him to follow- up with Dr. Mulligan next week as previously scheduled. Please notify me if I can be of any further assistance.
--- NOTE | 2024-05-22 12:12 | P.DS ---
Providers Date of admission: 05/17/24 05:43 Expected date of discharge: 05/18/24 Attending physician: Trey Hernandez MD Consults: 05/16/24 10:58 Consult Physician Routine Consulting Provider: Luciano Murguia Consult Reason/Comments: ureterolithaisis Do you want consulting provider notified?: Already Contacted Primary care physician: Frank Maurice Hospital Course: Final diagnosis Left ureteral calculi status post left ureteral balloon dilatation with ureteroscopy with holmium laser lithotripsy and stone basketing Left-sided hydronephrosis secondary to renal calculus History of radical prostatectomy with sphincter Abdominal pain Lactic acidosis Hypercalcemia Hyperbilirubinemia Diabetes mellitus GI prophylaxis DVT prophylaxis Full code Discharge disposition Patient is being discharged in a stable condition with guarded prognosis to home. Patient will follow-up with Dr. Maurice in the outpatient setting upon discharge. Patient is to continue with current medications and outpatient follow-up with Dr. Mulligan urology as scheduled. Total time taken is greater than 35 minutes. Hospital course This is a 68-year-old male who was recently admitted with abdominal pain noted to have a left ureteral calculi with left-sided hydronephrosis being closely monitored with urology following. Patient maintained on antibiotics and is status post ureteroscopy. Patient reports to feeling significantly improved with left ureteral balloon dilatation with holmium laser lithotripsy and basketing of the stone and cleared by urology recommending close outpatient follow-up. Please refer to other consultation notes for further HPI. Currently no reports of chest pain, shortness of breath, or palpitations. Patient is afebrile. No reports of nausea or vomiting and patient is tolerating diet. Patient will be discharged home today. Physical exam: Gen: This is a 68-year-old male who is awake, alert and oriented x 3, well- developed, well-nourished HEENT: Head is atraumatic, normocephalic. Pupils equal, round. Sclerae is anicteric. NECK: Supple. No JVD. No lymphadenopathy. No thyromegaly. LUNGS: Clear to auscultation. No wheezes or rhonchi. No intercostal retraction s. HEART: Regular rate and rhythm. No murmur. ABDOMEN: Soft. Bowel sounds are present. No masses. No tenderness. EXTREMITIES: No pedal edema. No calf tenderness. NEUROLOGICAL: Patient is awake, alert and oriented x3. Cranial nerves 2 through 12 are grossly intact. Please refer to medication reconciliation sheet for a list of medications. The impression and plan of care has been dictated by Kelley Echevarria, Nurse Practitioner as directed. Dr. Jason MD I have performed a history and examination and MDM of this patient, discussed the same with the dictator, and agree with the dictator's assessment and plan as written ,documented as a scribe. Based on total visit time, I have performed more than 50% of the visit. Patient Condition at Discharge: Stable Plan - Discharge Summary New Discharge Prescriptions: New Acetaminophen Tab [Tylenol] 650 mg PO Q6HR PRN tab PRN Reason: Mild Pain Or Fever > 100.5 Continue metFORMIN HCL [Glucophage] 850 mg PO TID Ketorolac [Toradol] 10 mg PO Q6HR PRN #15 tab PRN Reason: Pain Lupron 1 dose IM Q18D Tirzepatide [Mounjaro] 2.5 mg SQ WE Ondansetron [Zofran] 4 mg PO Q8HR PRN PRN Reason: Nausea Denosumab [Prolia] 1 dose SQ Q180D Discharge Medication List metFORMIN HCL [Glucophage] 850 mg PO TID 07/20/18 [History] Ketorolac [Toradol] 10 mg PO Q6HR PRN #15 tab 03/10/24 [Rx] Denosumab [Prolia] 1 dose SQ Q180D 05/16/24 [History] Lupron 1 dose IM Q18D 05/16/24 [History] Ondansetron [Zofran] 4 mg PO Q8HR PRN 05/16/24 [History] Tirzepatide [Mounjaro] 2.5 mg SQ WE 05/16/24 [History] Acetaminophen Tab [Tylenol] 650 mg PO Q6HR PRN tab 05/18/24 [Rx] Follow up Appointment(s)/Referral(s): Frank Maurice MD [Primary Care Provider] - 1-2 days Tom Mulligan MD [STAFF PHYSICIAN] - 1 Week Discharge Disposition: HOME SELF-CARE
== END 2024-05-18 11:03 | disposition home or self-care (01) | DRG 694 ==
LOC: EC 07:50 → 6NMEDSUR 10:58 → OBSVTOIN 05-17 05:43
PROVIDERS: ADMIT Internal Medicine; ATTEND Internal Medicine
PROC: 0TC78ZZ Extirpation of Matter from Left Ureter, Via Natural or Artificial Opening Endoscopic (ICD-10-PCS; principal; 2024-05-17 11:50)
DX: N13.2 Hydronephrosis with renal and ureteral calculous obstruction (principal); R17 Unspecified jaundice; E87.20 Acidosis, unspecified; R32 Unspecified urinary incontinence; M81.0 Age-related osteoporosis without current pathological fracture; Z79.84 Long term (current) use of oral hypoglycemic drugs; E86.0 Dehydration; E83.52 Hypercalcemia; E11.9 Type 2 diabetes mellitus without complications; Z85.46 Personal history of malignant neoplasm of prostate; Z87.442 Personal history of urinary calculi; Z90.79 Acquired absence of other genital organ(s); Z87.19 Personal history of other diseases of the digestive system
CPT/HCPCS: 36415; 74176; 74420; 80053; 81003; 82150; 83036; 83605; 83690; 85025; 96361; 96374; 96375; 96376; 99285

== ENCOUNTER → 2024-06-07 | Outpatient (CLI) | payer MEDICARE, OTHER ==
[2024-06-07 21:15] LABS: Uric Acid 5.2 mg/dL (3.7-8.7)
== END | disposition home or self-care (01) ==
LOC: LABWHC1 13:17
PROVIDERS: ATTEND Urology
DX: N20.0 Calculus of kidney (principal)
CPT/HCPCS: 36415; 82310; 83970; 84550

== ENCOUNTER → 2024-06-07 | Outpatient (CLI) | payer MEDICARE, OTHER ==
[2024-06-07 13:00] VITALS: BP 108/77; PULSE 90; RESP 16; TEMP 97.5
[2024-06-07] MEDS: DENOSUMAB 60 MG/ML 1 ML SYRINGE SQ NR (13:01)
== END ==
LOC: PROCWHC3 12:47
PROVIDERS: ATTEND Family Medicine
DX: M81.0 Age-related osteoporosis without current pathological fracture (principal)
CPT/HCPCS: 96372; J0897

== ENCOUNTER → 2024-10-27 | Outpatient (CLI) | payer MEDICARE, OTHER | END | disposition home or self-care (01) | LOC: LABWHC1 10:33 | PROVIDERS: ATTEND Urology | DX: C61 Malignant neoplasm of prostate (principal) | CPT/HCPCS: 36415; 84153 ==